=== PATIENT | female | born 1965 | race Caucasian/White ===

== ENCOUNTER → 2016-07-30 | Outpatient (CLI) | payer BC ==
[2016-07-30 15:43] LABS: Basophils # (A) 0.1 k/uL (0-0.2); Basophils % (A) 3 %; CH 32.9; CHCM 33.1; Eosinophils # (A) 0.1 k/uL (0-0.7); Eosinophils % (A) 2 %; HCT 36.7 % (34.0-46.0); HDW 2.21; HGB 11.8 gm/dL (11.4-16.0); Luc # (Auto) 0.07; Luc % (Auto) 2; Lymphocytes # (A) 0.4 k/uL (1.0-4.8); Lymphocytes % (A) 14 %; MCH 32.1 pg (25.0-35.0); MCHC 32.1 g/dL (31.0-37.0); MCV 99.8 fL (80.0-100.0); Mean Platelet Volume 7.9; Monocytes # (A) 0.2 k/uL (0-1.0); Monocytes % (A) 7 %; Neutrophils # (A) 2.3 k/uL (1.3-7.7); Neutrophils % (A) 72 %; RBC 3.67 m/uL (3.80-5.40); RDW 12.5 % (11.5-15.5); WBC 3.2 k/uL (3.8-10.6); WBC (Perox) 3.34
== END | disposition home or self-care (01) ==
LOC: LABWHC1 15:24
PROVIDERS: ATTEND Internal Medicine Rheumatology
DX: D72.819 Decreased white blood cell count, unspecified (principal)
CPT/HCPCS: 36415; 85025

== ENCOUNTER → 2016-08-27 | Outpatient (CLI) | payer BC ==
--- NOTE | 2016-08-27 17:51 | PN ---
This patient is coming in for her yearly check regarding her obstructive sleep apnea. The patient was diagnosed having mild DEIDRA with an AHI of 12 and currently she is on a CPAP pressure of 8 cm of water. She is utilizing an older-generation REMstar CPAP unit. Her machine has become recently more defective and she is looking for newer mask. Note that since her last evaluation the patient was diagnosed having a papillary cancer of the thyroid, and she has undergone thyroidectomy followed by radiation iodine treatment. Note that around the time of the surgery the patient gained around 10 pounds. She is currently on thyroid hormone replacement. She is taking Levoxyl 125 mcg p.o. daily. She is also known to have vaginal cancer that was treated by systemic chemotherapy and she has been in remission. She is taking Effexor for anxiety/depression at a dose of 225 mg p.o. daily. She is also on Xanax on a p.r.n. basis. She is sleeping well and her sleep quality is good for now. She was having some nightmares that were induced by Chantix. She took Chantix for a total of 2 weeks and the patient was having vivid dreams and unusual dreams. The patient quit taking the Chantix and ultimately she quit smoking. Since then her weird dreams have essentially recovered. BP is 136/78, pulse 84, respiration 16, temperature 98.2, saturation 99% on room air. Weight is 131. Height is 62 inches. [place] score is 6. BMI is 23.9. GENERAL APPEARANCE: Calm, comfortable. HEENT: Negative for JVD. No goiter or neck mass. LUNGS: Clear to auscultation. HEART: Sounds are regular rate and rhythm. Normal S1, S2. ABDOMEN: Soft, nontender. No organomegaly. EXTREMITIES: No edema. No cyanosis or clubbing. IMPRESSION: 1. Obstructive sleep apnea, mild, with an AHI of 12, currently on CPAP pressure of 8 cm of water. The patient is seeking a new CPAP machine. 2. Papillary carcinoma of the thyroid, status post thyroidectomy and radioactive iodine treatment. 3. 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 4. Depression. 5. Psoriasis. 6. Psoriatic arthritis. 7. Chronic anxiety. 8. Hyperlipidemia. PLAN: 1. Will order the patient a new CPAP machine. This will be a ResMed AirSense set at a pressure of 8 cm of water with a nasal pillow, and this will be an AirFit P10. 2. Encourage weight loss. 3. Treatment is successful in terms of her CPAP therapy, and the patient is compliant. We will see her back in a year's time in followup. The CPAP order for the new machine will be sent to [facility].
== END | disposition home or self-care (01) ==
LOC: SLEEP 13:25
PROVIDERS: ATTEND Internal Medicine Critical Care Medicine
DX: G47.33 Obstructive sleep apnea (adult) (pediatric) (principal); C73 Malignant neoplasm of thyroid gland; C52 Malignant neoplasm of vagina; Z98.890 Other specified postprocedural states; F32.9 Major depressive disorder, single episode, unspecified; L40.9 Psoriasis, unspecified; L40.50 Arthropathic psoriasis, unspecified; F41.8 Other specified anxiety disorders; E78.5 Hyperlipidemia, unspecified; Z92.21 Personal history of antineoplastic chemotherapy; Z87.891 Personal history of nicotine dependence; Z79.899 Other long term (current) drug therapy

== ENCOUNTER 2016-10-27 11:15 | Emergency (ER) | payer BC ==
[2016-10-27 11:40] VITALS: RESP 16
[2016-10-27] MEDS ORDERED: SODIUM CHLORIDE 0.9% 1,000 ML IV ONE (11:44)
[2016-10-27] MEDS ORDERED: SODIUM CHLORIDE 0.9% 1,000 ML IV SCH (11:45)
--- NOTE | 2016-10-27 12:04 | ED ---
General Adult HPI - General Chief complaint: Overdose Stated complaint: OVERDOSE Time Seen by Provider: 10/27/16 11:43 Source: patient, family, RN notes reviewed Mode of arrival: ambulatory Limitations: no limitations - History of Present Illness Initial comments: Chief complaint history of present illness this is a 51-year-old female who is here because she accidentally took too much methotrexate. The patient read the bottle incorrectly and took over a period of one week what she should've taken over. At 7 weeks. She called poison control she was told to come here. Poison control was notified and they recommend the patient receive IV fluids 20- 30 ML's per kilo. Basic labs to be done. Including stat methotrexate determination. - Related Data Home Medications Medication Instructions Recorded Confirmed Cyanocobalamin [Vitamin B-12] 1,000 mcg PO DAILY 03/30/14 10/27/16 Simvastatin [Zocor] 20 mg PO HS 03/30/14 10/27/16 Venlafaxine HCl [Effexor] 150 mg PO DAILY 03/30/14 10/27/16 [facility] Ultra [place] 50 Plus 1 tab PO DAILY 09/08/14 10/27/16 Loratadine [Claritin] 10 mg PO DAILY 09/08/14 10/27/16 Vitamin A 8,000 unit PO DAILY 09/08/14 10/27/16 Zinc 50 mg PO DAILY 09/08/14 10/27/16 Magnesium Gluconate [Magonate] 500 mg PO DAILY 05/31/15 10/27/16 ARIPiprazole [Abilify] 5 mg PO HS 10/27/16 10/27/16 Calcium Carbonate [Calcium] 600 mg PO 10/27/16 10/27/16 Folic Acid 1 mg PO DAILY 10/27/16 10/27/16 L.acidoph,Paracerici, B.lactis 1 cap PO DAILY 10/27/16 10/27/16 [Probiotic] LORazepam [Ativan] 0.25 - 0.5 mg PO BID PRN 10/27/16 10/27/16 Levothyroxine Sodium [Synthroid] 125 mcg PO DAILY 10/27/16 10/27/16 Methotrexate Sodium [Methotrexate] 10 - 15 mg PO TU 10/27/16 10/27/16 Multivitamins, Thera [Multivitamin 1 tab PO DAILY 10/27/16 10/27/16 (formulary)] Naproxen Sodium [Aleve] 220 mg PO HS 10/27/16 10/27/16 Ondansetron Odt [Zofran Odt] 4 mg PO Q8H PRN 10/27/16 10/27/16 Allergies Allergy/AdvReac Type Severity Reaction Status Date / Time oxycodone HCl [From Percodan] Allergy Itching Verified 10/27/16 13:00 oxycodone terephthalate Allergy Itching Verified 10/27/16 13:00 [From Percodan] Review of Systems ROS Statement: Those systems with pertinent positive or pertinent negative responses have been documented in the HPI. Review of systems. No headache or visual acuity changes. The patient has had multiple medical problems including papillary thyroid carcinoma with resection and radiation. There've been recurrent lymphadenopathy is currently being evaluated. 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 The patient's taking her methotrexate because of psoriatic arthritis. All systems are reviewed. Surgeries include 1 , ligament repair to left hand, carpal tunnel the right hand. Patient's also had uterine ablation. Family history no cancers. The patient has ALLERGIES to OxyContin. Patient's nonsmoker nondrinker. ROS Other: All systems not noted in ROS Statement are negative. Past Medical History Past Medical History: Cancer, Eye Disorder, Fibromyalgia, Hyperlipidemia, Neurologic Disorder, Skin Disorder, Thyroid Disorder Additional Past Medical History / Comment(s): Psoriatic Arthritis-ON BACK,ARMS & LEGS, HX VERTIGO OFF & ON, RECENTLY DX CA-SQUAMOUS CELL OF VAGINA-STARTS RADIATION 06/05/15 MON-FRI FOR 25 TX AND STARTS CHEMO 06/06/15 EVERY X 5 TX' S, GLASSES TO READ ONLY, thyroid History of Any Multi-Drug Resistant Organisms: None Reported Past Surgical History: Section, Orthopedic Surgery, Uterine Ablation Additional Past Surgical History / Comment(s): LT [id number]; LT KNEE SCOPE 2002 ; LT BREAST BX- STEREOTACTIC CORE BX 2013; RT CTR 2013;; UTERINE ABLATION 2010 ; 04/25/15 EXCISION OF CALCIFIED LT SUBCUTANEOUS PERINEAL TISSUE; COLONOSCOPY 2011 WITH 2 POLYPS REMOVED; NASAL SURGERY 2012, thyroidectomy Past Anesthesia/Blood Transfusion Reactions: No Reported Reaction Past Psychological History: Anxiety, Depression Additional Psychological History / Comment(s): OCC ANXIETY Smoking Status: Current every day smoker Past Alcohol Use History: Rare Additional Past Alcohol Use History / Comment(s): SMOKER SINCE AGE 14(1968)- HAS QUIT OFF & ON,SMOKES 1PPD Past Drug Use History: None Reported - Past Family History Mother Family Medical History: Eye Disorder, Hyperlipidemia, Hypertension Additional Family Medical History / Comment(s): HEART DISEASE AND MACULAR DEGENERATION Sister(s) Family Medical History: Hyperlipidemia Additional Family Medical History / Comment(s): TWO SISTERS HAVE HYPERLIPIDEMIA Brother(s) Family Medical History: Hyperlipidemia, Hypertension Additional Family Medical History / Comment(s): BOTH BROTHERS HAVE HTN, HYPERLIPIDEMIAS, HEART DISEASE General Exam - General Exam Comments Initial Comments: General: The patient is awake and alert, in no distress, and does not appear acutely ill. Patient here because of accidental overdose of methadone treks 8, missed interpreted the prescription orders. Vital signs shows temperature 98.4 pulse 92 respiratory rate 16 pulse ox 100% room air blood pressure 135/76 Eye: Pupils are equal, round and reactive to light, extra-ocular movements are intact ; there is normal conjunctiva bilaterally. No signs of icterus. Ears, nose, mouth and throat: There are moist mucous membranes and no oral lesions. She has had a thyroidectomy for papillary carcinoma as well as radiation. Neck: The neck is supple, there is no tenderness , recent ultrasound showed possibility of increased lymphadenopathy. Cardiovascular: Heart sounds. Normal. No murmur appreciated. The patient reports in general she just feels funny in her chest without specific complaint. Respiratory: Lungs are clear to auscultation, respirations are non-labored, breath sounds are equal. No wheezes, stridor, rales, or rhonchi. Gastrointestinal: Soft, non-distended, non-tender abdomen without masses or organomegaly noted. There is no rebound or guarding present. No CVA tenderness. Bowel sounds are unremarkable. Back: No complaint of back pain. Musculoskeletal: Patient states on her examination yesterday she felt a small possible lymph node in the lower left inguinal region. This was evaluated by her cancer team. Neurological: No neuro deficits noted or complained of. Skin: Patient has psoriasis upper or lower extremities. Limitations: no limitations Course Vital Signs 10/27/16 10/27/16 10/27/16 11:31 14:40 17:38 Temperature 98.4 F 98.2 F Pulse Rate 92 79 77 Respiratory 16 16 16 Rate Blood Pressure 135/76 139/68 137/77 O2 Sat by Pulse 100 100 100 Oximetry Medical Decision Making - Medical Decision Making Poison control called and told me that they called [place] [facility] to get the results of the methotrexate level. It 0.02 mmol. Poison control this time says the patient can go home. Not obviously to take anymore methotrexate. And get a repeat CBC, in one week. - Lab Data Result diagrams: 10/27/16 11:56 10/27/16 11:56 Lab Results 10/27/16 10/27/16 Range/Units 11:56 11:56 WBC 3.2 L (3.8-10.6) k/uL RBC 3.89 (3.80-5.40) m/uL Hgb 12.2 (11.4-16.0) gm/dL Hct 36.2 (34.0-46.0) % MCV 93.1 (80.0-100.0) fL MCH 31.3 (25.0-35.0) pg MCHC 33.6 (31.0-37.0) g/dL RDW 12.8 (11.5-15.5) % Plt Count 237 (150-450) k/uL Neutrophils % 79 % Lymphocytes % 13 % Monocytes % 2 % Eosinophils % 2 % Basophils % 1 % Neutrophils # 2.5 (1.3-7.7) k/uL Lymphocytes # 0.4 L (1.0-4.8) k/uL Monocytes # 0.1 (0-1.0) k/uL Eosinophils # 0.1 (0-0.7) k/uL Basophils # 0.0 (0-0.2) k/uL Sodium 141 (137-145) mmol/L Potassium 4.2 (3.5-5.1) mmol/L Chloride 101 (98-107) mmol/L Carbon Dioxide 28 (22-30) mmol/L Anion Gap 12 mmol/L BUN 13 (7-17) mg/dL Creatinine 0.56 (0.52-1.04) mg/dL Est GFR (MDRD) Af Amer >60 (>60 ml/min/1.73 sqM) Est GFR (MDRD) Non-Af >60 (>60 ml/min/1.73 sqM) Glucose 89 (74-99) mg/dL Calcium 9.5 (8.4-10.2) mg/dL Total Bilirubin 0.5 (0.2-1.3) mg/dL AST 61 H (14-36) U/L ALT 87 H (9-52) U/L Alkaline Phosphatase 77 (38-126) U/L Total Protein 6.9 (6.3-8.2) g/dL Albumin 4.3 (3.5-5.0) g/dL Disposition Clinical Impression: Accidental methotrexate overdose Disposition: HOME SELF-CARE Condition: Stable Instructions: Methotrexate (By mouth) Additional Instructions: Follow-up with family physician and 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 Have a CBC and comp done in one week. Return as needed Time of Disposition: 17:57
[2016-10-27 12:07] LABS: Basophils % (A) 1 %; CH 31.3; CHCM 33.7; Eosinophils # (A) 0.1 k/uL (0-0.7); Eosinophils % (A) 2 %; HCT 36.2 % (34.0-46.0); HDW 2.29; HGB 12.2 gm/dL (11.4-16.0); Luc # (Auto) 0.09; Luc % (Auto) 3; Lymphocytes # (A) 0.4 k/uL (1.0-4.8); Lymphocytes % (A) 13 %; MCH 31.3 pg (25.0-35.0); MCHC 33.6 g/dL (31.0-37.0); MCV 93.1 fL (80.0-100.0); Mean Platelet Volume 6.8; Monocytes # (A) 0.1 k/uL (0-1.0); Monocytes % (A) 2 %; Neutrophils # (A) 2.5 k/uL (1.3-7.7); Neutrophils % (A) 79 %; RBC 3.89 m/uL (3.80-5.40); RDW 12.8 % (11.5-15.5); WBC 3.2 k/uL (3.8-10.6); WBC (Perox) 3.15
[2016-10-27 12:24] LABS: ALT 87 U/L (9-52); AST 61 U/L (14-36); Alkaline Phosphatase 77 U/L (38-126); Anion Gap 12 mmol/L; Blood Urea Nitrogen 13 mg/dL (7-17); Calcium 9.5 mg/dL (8.4-10.2); Carbon Dioxide 28 mmol/L (22-30); Chloride 101 mmol/L (98-107); Glucose 89 mg/dL (74-99); Non-African American GFR(MDRD) >60 (>60 ml/min/1.73 sqM); Potassium 4.2 mmol/L (3.5-5.1); Sodium 141 mmol/L (137-145); Total Bilirubin 0.5 mg/dL (0.2-1.3); Total Protein 6.9 g/dL (6.3-8.2)
[2016-10-27 17:39] VITALS: BP 137/77; PULSE 77
[2016-10-27 18:23] VITALS: TEMP 97.5
[2016-10-28 07:28] LABS: Mis test requested (Blood) Methotrexate
== END 2016-10-27 18:23 | disposition home or self-care (01) ==
LOC: EC 11:15
DX: T45.1X1A Poisoning by antineoplastic and immunosuppressive drugs, accidental (unintentional), initial encounter (principal); Z88.5 Allergy status to narcotic agent; E07.9 Disorder of thyroid, unspecified; E78.5 Hyperlipidemia, unspecified; F41.9 Anxiety disorder, unspecified; F32.9 Major depressive disorder, single episode, unspecified; F17.200 Nicotine dependence, unspecified, uncomplicated; Z85.9 Personal history of malignant neoplasm, unspecified; Z79.1 Long term (current) use of non-steroidal anti-inflammatories (NSAID); Z79.899 Other long term (current) drug therapy
CPT/HCPCS: 36415; 80053; 80299; 85025; 96360; 96361; 99284

== ENCOUNTER → 2016-11-01 | Outpatient (CLI) | payer BC ==
[2016-11-01 17:16] LABS: CHCM 33.1; HCT 34.6 % (34.0-46.0); HDW 2.35; HGB 11.8 gm/dL (11.4-16.0); MCHC 34.1 g/dL (31.0-37.0); MCV 93.9 fL (80.0-100.0); Mean Platelet Volume 6.7; RBC 3.69 m/uL (3.80-5.40); RDW 13.6 % (11.5-15.5); WBC 3.3 k/uL (3.8-10.6)
[2016-11-01 17:40] LABS: ALT 55 U/L (9-52); AST 36 U/L (14-36); Alkaline Phosphatase 84 U/L (38-126); Anion Gap 10 mmol/L; Blood Urea Nitrogen 8 mg/dL (7-17); Calcium 9.7 mg/dL (8.4-10.2); Carbon Dioxide 30 mmol/L (22-30); Chloride 102 mmol/L (98-107); Glucose 102 mg/dL (74-99); Non-African American GFR(MDRD) >60 (>60 ml/min/1.73 sqM); Potassium 4.3 mmol/L (3.5-5.1); Sodium 142 mmol/L (137-145); Total Bilirubin 0.4 mg/dL (0.2-1.3); Total Protein 6.8 g/dL (6.3-8.2)
== END | disposition home or self-care (01) ==
LOC: LABWHC1 16:54
PROVIDERS: ATTEND Emergency Medicine
DX: T45.1X1A Poisoning by antineoplastic and immunosuppressive drugs, accidental (unintentional), initial encounter (principal)
CPT/HCPCS: 36415; 80053; 85027

== ENCOUNTER → 2016-11-13 | Outpatient (CLI) | payer BC ==
--- NOTE | 2016-11-13 14:48 | MM ---
Reason for exam: clinical finding. Last mammogram was performed 8 months ago. History: Patient has history of other cancer at age 50 and has history of high-risk lesion on a previous biopsy at age 48. Family history of breast cancer in 2 maternal aunts and breast cancer in paternal aunt. High risk left mammotome panel of the left breast, November 11, 2013. Indicated problem(s): lump or thickening in the left breast. Physical Findings: Nurse did not find any significant physical abnormalities on exam. MG Diagnostic Mammo LT w CAD CC and MLO view(s) were taken of the left breast. Prior study comparison: March 15, 2016, bilateral MG screening mammo w CAD. November 08, 2014, bilateral MG diagnostic mammo w CAD BEATRICE. The breast tissue is heterogeneously dense. This may lower the sensitivity of mammography. Benign calcifications. There is no discrete abnormality including area of concern. These results were verbally communicated with the patient and result sheet given to the patient on 11/13/16. ASSESSMENT: Incomplete: need additional imaging evaluation, BI-RAD 0 RECOMMENDATION: Ultrasound of the left breast.
--- NOTE | 2016-11-13 14:49 | USB ---
Reason for exam: additional evaluation requested from abnormal screening. History: Patient has history of other cancer at age 50 and has history of high-risk lesion on a previous biopsy at age 48. Family history of breast cancer in 2 maternal aunts and breast cancer in paternal aunt. High risk left mammotome panel of the left breast, November 11, 2013. US Breast Limited LT Left breast ultrasound demonstrates no cystic or solid lesion seen. These results were verbally communicated with the patient and result sheet given to the patient on 11/13/16. ASSESSMENT: Negative, BI-RAD 1 RECOMMENDATION: Return to routine screening mammogram schedule for the left breast. Back on schedule February 2017. Manage patient on a clinical basis.
== END ==
LOC: RADMAMWWP 13:04
PROVIDERS: ATTEND Obstetrics & Gynecology
DX: N63 Unspecified lump in breast (principal); R92.8 Other abnormal and inconclusive findings on diagnostic imaging of breast
CPT/HCPCS: 76642; G0206

== ENCOUNTER → 2017-04-03 | Outpatient (CLI) | payer MEDICARE, BC ==
--- NOTE | 2017-04-04 06:54 | MM ---
Reason for exam: screening (asymptomatic). Last mammogram was performed 5 months ago. History: Patient has history of other cancer at age 50 and has history of high-risk lesion on a previous biopsy at age 48. Family history of breast cancer in 2 maternal aunts and breast cancer in paternal aunt. High risk left mammotome panel of the left breast, November 11, 2013. Physical Findings: A clinical breast exam by your physician is recommended on an annual basis and results should be correlated with mammographic findings. MG 3D Screening Mammo W/Cad Bilateral CC and MLO view(s) were taken. Prior study comparison: November 13, 2016, left breast MG diagnostic mammo LT w CAD. March 15, 2016, bilateral MG screening mammo w CAD. The breast tissue is heterogeneously dense. This may lower the sensitivity of mammography. Finding: There are typically benign round, regional calcifications in the right breast. Previous mammotome biopsy in the left breast. There is no discrete abnormality. ASSESSMENT: Benign, BI-RAD 2 RECOMMENDATION: Routine screening mammogram of both breasts in 1 year.
== END | disposition home or self-care (01) ==
LOC: RADMAMWWP 09:41
PROVIDERS: ATTEND Internal Medicine Geriatric Medicine
DX: Z12.31 Encounter for screening mammogram for malignant neoplasm of breast (principal)
CPT/HCPCS: 77063; G0202

== ENCOUNTER → 2017-08-05 | Outpatient (CLI) | payer MEDICARE, BC ==
--- NOTE | 2017-08-05 14:47 | PN ---
PROGRESS NOTE This patient is 52 with known history of obstructive sleep apnea. She is coming to see me in followup. The patient was diagnosed having mild DEIDRA many years back with an AHI of 12. She was being treated with a CPAP pressure of 8 cm of water and she was using an older generation REM Star CPAP unit. The machine was becoming progressively more defective and during her last evaluation I gave her a prescription for a new CPAP machine which was a Rezmet Unit, a newer generation CPAP. The order went through however as the patient's insurance switched to Medicare, the machine had to be returned knowing that Medicare did not pickler helper the payments on the CPAP unit. As such, the CPAP machine was returned back to the [facility]. The patient is symptomatic. She has been very somnolent and sleepy and she wanted a reevaluation and treatment. As such, she will need another CPAP titration to adjust her pressures and send out an order for a new CPAP unit regarding her symptomatic obstructive sleep apnea. No recent weight gain. She has known having vaginal cancer and currently her disease is in remission. She has had several lymph node biopsies in the pelvic area that showed no evidence of any cancer. She also has a history of papillary cancer of the thyroid and she has undergone thyroidectomy in currently she is on thyroid hormone replacement. She has chronic anxiety/depression for which she is on Xanax. She has quit smoking for now. Her current vital signs are as follows: Temperature 97.8, pulse is 80, respirations 16, BP is 127/78, and weight is 131. [place] score is at 7. General appearance is calm, comfortable in no acute distress. Head is atraumatic, normocephalic. No goiter or neck masses. Scar of previous neck surgery. LUNGS: Clear to auscultation. Heart sounds regular rate and rhythm. Normal S1, S2. No S3, S4. No murmurs. Abdomen is soft, nontender. No organomegaly. EXTREMITIES: No edema. No cyanosis or clubbing. NEUROLOGIC the patient is alert and oriented x3. There is no focal neurological deficits. Psychiatric is negative for any active active anxiety or depression. Skin is negative for any ulcerations or wounds. IMPRESSION: 1. Obstructive sleep apnea. Mild in severity. AHI of 12. The patient will need another CPAP titration to establish a new CPAP pressure and the patient will obviously need a new CPAP order. 2. carcinoma of the thyroid with thyroidectomy and radiation iodine treatment. Currently she is on thyroid hormone replacement. 3. Squamous cell carcinoma of vagina status post chemoradiation therapy. 4. Anxiety/depression. 5. Psoriasis. 6. Psoriatic arthritis. 7. Chronic anxiety. 8. Hyperlipidemia. PLAN: 1. The patient was happy with her AirFit P10 nasal pillow and this will be kept. 2. The patient will be set up for a new CPAP machine. She will have a titration. The pressure will be adjusted and following that, she will see me back in 30-90 days to assess clinical response and compliance. 3. We will continue to follow. MMODL / IJN: [id number] /
== END | disposition home or self-care (01) ==
LOC: SLEEP 13:46
PROVIDERS: ATTEND Internal Medicine Critical Care Medicine
DX: G47.33 Obstructive sleep apnea (adult) (pediatric) (principal); C52 Malignant neoplasm of vagina; L40.9 Psoriasis, unspecified; E78.5 Hyperlipidemia, unspecified; F41.9 Anxiety disorder, unspecified; F32.9 Major depressive disorder, single episode, unspecified; L40.50 Arthropathic psoriasis, unspecified; Z99.89 Dependence on other enabling machines and devices; Z85.850 Personal history of malignant neoplasm of thyroid; Z90.89 Acquired absence of other organs; Z79.890 Hormone replacement therapy; Z87.891 Personal history of nicotine dependence; Z79.899 Other long term (current) drug therapy; Z92.21 Personal history of antineoplastic chemotherapy

== ENCOUNTER → 2017-10-21 | Outpatient (CLI) | payer MEDICARE, BC ==
--- NOTE | 2017-10-21 16:19 | PN ---
PROGRESS NOTE This is a 52-year-old female patient, who is coming in for a compliancy check regarding her obstructive sleep apnea treatment. The patient sent to me with increased tiredness and fatigue and sleepiness. She is known to have multiple other medical problems including history of thyroid cancer, post thyroidectomy and radioactive iodine treatment. The patient is currently on thyroid hormone replacement. She has also history of squamous cell carcinoma of the vagina, anxiety and depression, psoriasis and psoriatic arthritis and chronic anxiety and hyperlipidemia. Along with these comorbid conditions the patient was diagnosed having obstructive sleep apnea with an AHI of 12. She was offered CPAP therapy and she is utilizing her CPAP at a pressure of 8 cm of water. Based on the data was collected between 08/26/2017 and 09/24/2017 the patient extremely compliant and she has been averaging around 11 hours of CPAP use every night. Her leak factor is 1 L/minute with AHI while on treatment down to 6 and she does have some few central events. For the most part, she is benefitting from the treatment. She wants to continue the treatment. She is feeling much more refreshed while on treatment. Never the less, she is not fully refreshed and she does have some residual hypersomnia and sleepiness during the day despite averaging more than 10 hours of CPAP use every night. Her depression is well treated. Thyroid functions have been monitored through primary care physician. Apparently she has been told that her levels are appropriate. No active anxiety. No restlessness in lower extremities. No sleep fragmentation. No weight gain. Her review of systems is positive for increased fatigue and tiredness and sleepiness although improved, there is some residual hypersomnia still along with fatigue. Is also positive for anxiety and depression which is well treated. No recent weight gain or weight loss. No fever, chills or night sweats. No rhinitis. No cough or sputum production. No nocturnal heartburn or chest pain or shortness of breath. No chronic pain or palpitations. Her psoriasis is well treated for now. No active skin rash. No dysuria, frequency or urgency. No skin wounds or ulcerations or any other issues. BP 111/76, pulse 86, respirations 16, temperature is 97.7, weight is 142.6 pounds, BMI 25.9. GENERAL APPEARANCE: Calm, comfortable. HEENT: Atraumatic normocephalic. Neck is supple. There is no JVD. No goiter or neck masses. LUNGS: Clear to auscultation. Heart sounds are regular. Normal S1, S2. No S3, S4. No murmurs. Abdomen is soft, nontender. No organomegaly. EXTREMITIES: No edema. No cyanosis or clubbing. SKIN: Negative for any wounds or ulcerations. NEURO: Alert and oriented x3. There is no focal neurological deficits. PSYCH: Appropriate mood and affect. IMPRESSION: 1. Obstructive sleep apnea with an AHI of 12. The patient is undergoing successful treatment with a CPAP pressure of 8 cm of water. The patient is benefitting from the treatment. 2. Hypersomnia, improved although the patient complained to have some residual fatigue and sleepiness, [place] score is 6. 3. Adequate compliance demonstrated on the CPAP use based on the compliance data that was collected over the past 30 days. 4. History of psoriasis and psoriatic arthritis. 5. History of anxiety/depression. 6. History of hyperlipidemia. 7. History of thyroid cancer with a previous thyroidectomy and thyroid hormone replacement. 8. History of squamous cell carcinoma of the vaginal wall, status post chemoradiation therapy. PLAN: Treatment with CPAP is successful, continue same treatment. Offered this patient Provigil on trial basis 200 mg to be taken in the morning to help with ongoing fatigue and hypersomnia that is occurring during the day. The patient has been averaging around more than 8-9 hours of CPAP use of per night. Her treatment is successful. There may be some residual hypersomnia related to her obstructive sleep apnea or from other comorbidities that may respond to Provigil. The patient will call me back with her clinical response to Provigil in a few week's time. She was given only 30 day supply. MMODL / IJN: [id number] /
== END | disposition home or self-care (01) ==
LOC: SLEEP 13:07
PROVIDERS: ATTEND Internal Medicine Critical Care Medicine
DX: G47.33 Obstructive sleep apnea (adult) (pediatric) (principal); G47.10 Hypersomnia, unspecified; Z87.2 Personal history of diseases of the skin and subcutaneous tissue; Z86.59 Personal history of other mental and behavioral disorders; Z86.39 Personal history of other endocrine, nutritional and metabolic disease; Z85.850 Personal history of malignant neoplasm of thyroid; Z98.890 Other specified postprocedural states; Z85.828 Personal history of other malignant neoplasm of skin; Z92.21 Personal history of antineoplastic chemotherapy; Z99.89 Dependence on other enabling machines and devices; Z79.899 Other long term (current) drug therapy

== ENCOUNTER → 2018-01-07 | Outpatient (CLI) | payer MEDICARE, BC ==
[2018-01-07 16:47] LABS: Albumin 4.6 g/dL (3.5-5.0); Bilirubin, Delta 0.3 mg/dL (0.0-0.2); Total Bilirubin 0.3 mg/dL (0.2-1.3); Total Protein 6.8 g/dL (6.3-8.2)
== END | disposition home or self-care (01) ==
LOC: LABWHC1 15:10
PROVIDERS: ATTEND Internal Medicine Rheumatology
DX: D89.9 Disorder involving the immune mechanism, unspecified (principal); L40.50 Arthropathic psoriasis, unspecified; Z51.81 Encounter for therapeutic drug level monitoring
CPT/HCPCS: 36415; 80076

== ENCOUNTER → 2018-03-26 | Outpatient (CLI) | payer MEDICARE, BC ==
[2018-03-26 13:09] LABS: ALT 44 U/L (9-52); AST 27 U/L (14-36); Albumin 4.3 g/dL (3.5-5.0); Alkaline Phosphatase 86 U/L (38-126); Anion Gap 10 mmol/L; Blood Urea Nitrogen 9 mg/dL (7-17); Calcium 9.5 mg/dL (8.4-10.2); Carbon Dioxide 29 mmol/L (22-30); Chloride 101 mmol/L (98-107); Glucose 100 mg/dL (74-99); Potassium 4.1 mmol/L (3.5-5.1); Sodium 140 mmol/L (137-145); Total Bilirubin 0.4 mg/dL (0.2-1.3); Total Protein 6.8 g/dL (6.3-8.2)
[2018-03-26 20:17] LABS: Hepatitis B Core IgM Non-Reactive (Non-Reactive)
== END | disposition home or self-care (01) ==
LOC: LABWHC1 12:35
PROVIDERS: ATTEND Internal Medicine Geriatric Medicine
DX: R94.5 Abnormal results of liver function studies (principal)
CPT/HCPCS: 36415; 80053; 80074

== ENCOUNTER → 2018-04-02 | Outpatient (CLI) | payer MEDICARE, BC ==
--- NOTE | 2018-04-02 14:17 | US ---
EXAMINATION TYPE: US liver DATE OF EXAM: 04/02/2018 COMPARISON: NONE CLINICAL HISTORY: R94.5 ABN RESULTS OF LIVER FUNCTIONS. EXAM MEASUREMENTS: Liver Length: 15.1 cm Gallbladder Wall: 0.2 cm CBD: 0.4 cm Right Kidney: 11.0 x 4.0 x 5.3 cm Pancreas: wnl Liver: wnl Gallbladder: wnl Evidence for sonographic May's sign: no CBD: wnl Right Kidney: No hydronephrosis or masses seen IMPRESSION: 1. Normal right upper quadrant ultrasound
== END | disposition home or self-care (01) ==
LOC: RADUSWWP 08:29
PROVIDERS: ATTEND Internal Medicine Geriatric Medicine
DX: R94.5 Abnormal results of liver function studies (principal)
CPT/HCPCS: 76705

== ENCOUNTER → 2018-04-09 | Outpatient (CLI) | payer MEDICARE, BC ==
--- NOTE | 2018-04-09 14:20 | MM ---
Reason for exam: screening (asymptomatic). Last mammogram was performed 1 year ago. History: Patient has history of other cancer at age 50 and has history of high-risk lesion on a previous biopsy at age 48. Family history of breast cancer in 2 maternal aunts and breast cancer in paternal aunt. High risk left mammotome panel of the left breast, November 11, 2013. Physical Findings: A clinical breast exam by your physician is recommended on an annual basis and results should be correlated with mammographic findings. MG 3D Screening Mammo W/Cad Bilateral CC and MLO view(s) were taken. Prior study comparison: April 03, 2017, bilateral MG 3d screening mammo w/cad. November 13, 2016, left breast MG diagnostic mammo LT w CAD. The breast tissue is heterogeneously dense. This may lower the sensitivity of mammography. There are benign appearing round calcifications bilaterally. Previous mammotome biopsy in the left breast. There is no discrete abnormality. ASSESSMENT: Benign, BI-RAD 2 RECOMMENDATION: Routine screening mammogram of both breasts in 1 year.
== END | disposition home or self-care (01) ==
LOC: RADMAMWWP 09:53
PROVIDERS: ATTEND Internal Medicine Geriatric Medicine
DX: Z12.31 Encounter for screening mammogram for malignant neoplasm of breast (principal)
CPT/HCPCS: 77063; 77067

== ENCOUNTER → 2018-07-24 | Outpatient (CLI) | payer MEDICARE, BC ==
[2018-07-24 13:42] LABS: Basophils % (A) 0 %; Eosinophils # (A) 0.1 k/uL (0-0.7); Eosinophils % (A) 2 %; HCT 36.8 % (34.0-46.0); HGB 12.5 gm/dL (11.4-16.0); Lymphocytes # (A) 0.4 k/uL (1.0-4.8); Lymphocytes % (A) 9 %; MCH 31.7 pg (25.0-35.0); MCV 93.1 fL (80.0-100.0); Mean Platelet Volume 6.3; Monocytes # (A) 0.2 k/uL (0-1.0); Monocytes % (A) 5 %; Neutrophils # (A) 4.4 k/uL (1.3-7.7); Neutrophils % (A) 84 %; Platelet Count 215 k/uL (150-450); RBC 3.95 m/uL (3.80-5.40); RDW 14.1 % (11.5-15.5); WBC 5.2 k/uL (3.8-10.6)
== END | disposition home or self-care (01) ==
LOC: LABWHC1 13:00
PROVIDERS: ATTEND Internal Medicine Rheumatology
DX: L40.50 Arthropathic psoriasis, unspecified (principal); D89.9 Disorder involving the immune mechanism, unspecified; Z51.81 Encounter for therapeutic drug level monitoring
CPT/HCPCS: 36415; 85025

== ENCOUNTER → 2018-08-21 | Outpatient (CLI) | payer MEDICARE ==
[2018-08-21 14:33] LABS: Basophils % (A) 1 %; Eosinophils # (A) 0.1 k/uL (0-0.7); Eosinophils % (A) 3 %; HCT 39.5 % (34.0-46.0); Lymphocytes # (A) 0.5 k/uL (1.0-4.8); Lymphocytes % (A) 14 %; MCH 31.5 pg (25.0-35.0); MCHC 32.8 g/dL (31.0-37.0); MCV 95.8 fL (80.0-100.0); Mean Platelet Volume 6.7; Monocytes # (A) 0.2 k/uL (0-1.0); Monocytes % (A) 4 %; Neutrophils # (A) 2.9 k/uL (1.3-7.7); Neutrophils % (A) 77 %; Platelet Count 210 k/uL (150-450); RBC 4.13 m/uL (3.80-5.40); RDW 14.4 % (11.5-15.5); WBC 3.8 k/uL (3.8-10.6)
[2018-08-21 18:43] LABS: ALT 41 U/L (8-44); AST 33 U/L (13-35); Albumin/Globulin Ratio 2.25 (1.20-2.10); Alkaline Phosphatase 118 U/L (41-126); Bilirubin, Conjugated <0.20 mg/dL (0.20-0.40); Total Bilirubin 0.3 mg/dL (0.3-1.2); Total Protein 6.5 g/dL (6.2-8.2)
== END ==
LOC: LABWHC1 13:46
PROVIDERS: ATTEND Internal Medicine Rheumatology
DX: Z51.81 Encounter for therapeutic drug level monitoring (principal); D89.9 Disorder involving the immune mechanism, unspecified; L40.50 Arthropathic psoriasis, unspecified
CPT/HCPCS: 36415; 80076; 82565; 85025

== ENCOUNTER → 2018-09-29 | Outpatient (CLI) | payer MEDICARE ==
--- NOTE | 2018-09-29 17:14 | PN ---
PROGRESS NOTE Marnie is doing well. She is coming for routine check regarding obstructive sleep apnea. She has done extremely well in terms of other comorbidities. 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 She has also history of anxiety and depression. She has history of psoriatic arthritis and psoriasis. Maintained on methotrexate. She has chronic anxiety and hyperlipidemia. As for sleep apnea, she has mild disease with an AHI of 12 and she has been maintained on a CPAP pressure of 8. She has been exercising regularly. Her weight is down to 134, and she is 8 pounds less compared to her last evaluation approximately a year ago. She is using AirFit P10 nose pillows. She is waking up refreshed. Based on the compliance data, she is averaging about 7.5 hours of CPAP use per night. Leak is 22 L/minute. AHI is down to less than 5. No complaints whatsoever. She has had no anxiety. No restlessness in lower extremities. No sleep fragmentation, waking up refreshed and alert. PHYSICAL EXAMINATION: BP is 118/81, pulse 97, respirations 16, temp 98.4, saturation 98% on room air. Weight is 134, height is 5 feet 2 inches, Buhl score is 7, BMI 24.5, general appearance is calm and comfortable. Head is atraumatic, normocephalic. Neck is supple. There is no JVD. No goiter or neck masses. LUNGS: Clear to auscultation. Heart sounds are regular rate and rhythm. Normal S1, S2. No S3, S4. No murmurs. Abdomen is soft, nontender. No organomegaly. EXTREMITIES: No edema. No cyanosis or clubbing. IMPRESSION: 1. Obstructive sleep apnea, AHI of 12, currently on CPAP pressure of 8 and continues to be compliant and she is having excellent clinical response. 2. Hypersomnia, recovered. 3. Psoriasis along with psoriatic arthritis on methotrexate. 4. Chronic anxiety/depression. Currently on a combination of Abilify and Effexor. 5. Hyperlipidemia on Zocor. 6. 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 7. History of thyroid cancer. Post thyroidectomy. PLAN: 1. Continue CPAP therapy at same level of pressure. 2. Daily exercise. 3. Adequate sleep hygiene measures. 4. Continue to follow, treatment is good. 5. Refills on supplies were given. 6. See me back in a few years time in follow up. MMODL / IJN: [id number] /
== END ==
LOC: SLEEP 15:21
PROVIDERS: ATTEND Internal Medicine Critical Care Medicine
DX: G47.33 Obstructive sleep apnea (adult) (pediatric) (principal); L40.50 Arthropathic psoriasis, unspecified; F32.9 Major depressive disorder, single episode, unspecified; F41.9 Anxiety disorder, unspecified; E78.5 Hyperlipidemia, unspecified; Z99.89 Dependence on other enabling machines and devices; Z85.44 Personal history of malignant neoplasm of other female genital organs; Z92.21 Personal history of antineoplastic chemotherapy; Z85.850 Personal history of malignant neoplasm of thyroid; Z79.899 Other long term (current) drug therapy; Z92.3 Personal history of irradiation; Z90.89 Acquired absence of other organs

== ENCOUNTER → 2018-10-23 | Outpatient (CLI) | payer MEDICARE ==
[2018-10-23 17:43] LABS: Basophils % (A) 1 %; Eosinophils # (A) 0.1 k/uL (0-0.7); Eosinophils % (A) 1 %; HGB 12.4 gm/dL (11.4-16.0); Lymphocytes # (A) 0.6 k/uL (1.0-4.8); Lymphocytes % (A) 15 %; MCH 31.1 pg (25.0-35.0); MCHC 32.7 g/dL (31.0-37.0); MCV 95.3 fL (80.0-100.0); Mean Platelet Volume 7.1; Monocytes # (A) 0.2 k/uL (0-1.0); Monocytes % (A) 4 %; Neutrophils # (A) 3.1 k/uL (1.3-7.7); Neutrophils % (A) 77 %; Platelet Count 228 k/uL (150-450); RBC 3.99 m/uL (3.80-5.40); RDW 15.3 % (11.5-15.5); WBC 4.1 k/uL (3.8-10.6)
[2018-10-23 23:49] LABS: ALT 47 U/L (8-44); AST 34 U/L (13-35); Albumin/Globulin Ratio 2.71 (1.60-3.17); Alkaline Phosphatase 109 U/L (41-126); Bilirubin, Conjugated <0.20 mg/dL (0.20-0.40); Globulin 1.7 g/dL (1.6-3.3); Total Bilirubin 0.3 mg/dL (0.2-1.2); Total Protein 6.3 g/dL (6.2-8.2)
== END | disposition home or self-care (01) ==
LOC: LABWHC1 16:34
PROVIDERS: ATTEND Internal Medicine Rheumatology
DX: L40.50 Arthropathic psoriasis, unspecified (principal); D89.9 Disorder involving the immune mechanism, unspecified; E89.0 Postprocedural hypothyroidism; Z51.81 Encounter for therapeutic drug level monitoring
CPT/HCPCS: 36415; 80076; 82565; 84443; 85025

== ENCOUNTER → 2018-11-04 | Outpatient (CLI) | payer MEDICARE ==
--- NOTE | 2018-11-04 15:43 | BD ---
EXAMINATION TYPE: Axial Bone Density DATE OF EXAM: 11/04/2018 COMPARISON: NONE CLINICAL HISTORY: Postoperative hypothyroidism Height: 61.5 Weight: 134.4 FRAX RISK QUESTIONS: Alcohol (3 or more units per day): no Family History (Parent hip fracture): yes- mother Glucocorticoids (More than 3mos): no (Ex: prednisone, prednisolone, methylprednisolone, dexamethasone, and hydrocortisone). History of Fracture in Adulthood: no Secondary Osteoporosis: 1. Type 1 Diabetes: no 2. Hyperthyroidism: no 3. Menopause before 45: yes 4. Malnutrition: no 5. Chronic liver disease: no Rheumatoid Arthritis: no Current Tobacco Use: no RISK FACTORS HISTORY OF: History of Wrist Fracture: right wrist When: as a child Family History of Osteoporosis: no Active: yes Diet low in dairy products/other sources of calcium: no Postmenopausal woman: age 38 Lost more than 2 inches in height since high school: no MEDICATIONS: anti-depressants, effexor, methotrexate simvastatin, Thyroid Medications: levothyroxine How Lon years Additional History: thyroid cancer-2014/ chemo and radiation/ vaginal cancer 2013 EXAM MEASUREMENTS: Bone mineral densitometry was performed using the [employer] Digital System. Bone mineral density as measured about the Lumbar spine is: ----- L1-L4(G/cm2): 0.983 T Score Values are as follows: ----- L2: -2.3 ----- L3: -1.4 ----- L4: -1.8 ----- L1-L4: -1.6 Bone mineral density : baseline Bone mineral density about the R hip (g/cm2): 0.825 Bone mineral density about the L hip (g/cm2): 0.754 T Score values are as follows: -----R Neck: -1.5 -----L Neck: -1.2 -----R Total: -0.6 -----L Total: -1.1 Bone mineral density : baseline IMPRESSION: Osteopenia (T Score between -2.5 and -1). There is slightly increased risk of fracture and the patient may be considered for treatment. Re-Screen 2-5 years. NOTE: T-SCORE=SD OF THE YOUNG ADULT MEAN.
== END | disposition home or self-care (01) ==
LOC: RADBDWWP 14:02
PROVIDERS: ATTEND Internal Medicine Rheumatology
DX: M85.80 Other specified disorders of bone density and structure, unspecified site (principal)
CPT/HCPCS: 77080

== ENCOUNTER → 2018-12-18 | Outpatient (CLI) | payer MEDICARE ==
[2018-12-18 15:19] LABS: Basophils % (A) 1 %; Eosinophils # (A) 0.1 k/uL (0-0.7); Eosinophils % (A) 1 %; HCT 38.2 % (34.0-46.0); HGB 12.7 gm/dL (11.4-16.0); Lymphocytes # (A) 0.6 k/uL (1.0-4.8); Lymphocytes % (A) 13 %; MCH 31.5 pg (25.0-35.0); MCHC 33.4 g/dL (31.0-37.0); MCV 94.4 fL (80.0-100.0); Mean Platelet Volume 6.8; Monocytes # (A) 0.2 k/uL (0-1.0); Monocytes % (A) 4 %; Neutrophils # (A) 3.7 k/uL (1.3-7.7); Neutrophils % (A) 79 %; Platelet Count 226 k/uL (150-450); RBC 4.04 m/uL (3.80-5.40); RDW 15.7 % (11.5-15.5); WBC 4.7 k/uL (3.8-10.6)
[2018-12-18 18:26] LABS: ALT 75 U/L (8-44); AST 39 U/L (13-35); Albumin/Globulin Ratio 2.61 (1.60-3.17); Alkaline Phosphatase 123 U/L (41-126); Bilirubin, Conjugated <0.20 mg/dL (0.20-0.40); Globulin 1.8 g/dL (1.6-3.3); Total Bilirubin 0.4 mg/dL (0.3-1.2); Total Protein 6.5 g/dL (6.2-8.2)
== END | disposition home or self-care (01) ==
LOC: LABWHC1 14:18
PROVIDERS: ATTEND Internal Medicine Rheumatology
DX: E89.0 Postprocedural hypothyroidism (principal); D89.9 Disorder involving the immune mechanism, unspecified; L40.50 Arthropathic psoriasis, unspecified; Z51.81 Encounter for therapeutic drug level monitoring
CPT/HCPCS: 36415; 80076; 82565; 84443; 85025

== ENCOUNTER → 2019-02-16 | Outpatient (CLI) | payer MEDICARE ==
[2019-02-16 19:01] LABS: ALT 41 U/L (8-44); AST 33 U/L (13-35); Albumin/Globulin Ratio 2.71 (1.60-3.17); Alkaline Phosphatase 116 U/L (41-126); Bilirubin, Conjugated <0.20 mg/dL (0.20-0.40); Globulin 1.7 g/dL (1.6-3.3); Total Bilirubin 0.4 mg/dL (0.2-1.2); Total Protein 6.3 g/dL (6.2-8.2)
== END | disposition home or self-care (01) ==
LOC: LABWHC1 13:31
PROVIDERS: ATTEND Internal Medicine Rheumatology
DX: Z51.81 Encounter for therapeutic drug level monitoring (principal); Z79.899 Other long term (current) drug therapy; L40.50 Arthropathic psoriasis, unspecified; D89.9 Disorder involving the immune mechanism, unspecified
CPT/HCPCS: 36415; 80076

== ENCOUNTER → 2019-04-22 | Outpatient (CLI) | payer MEDICARE ==
--- NOTE | 2019-04-26 10:18 | MM ---
Reason for exam: screening (asymptomatic). Last mammogram was performed 1 year ago. History: Patient is postmenopausal, has history of other cancer at age 50, and has history of high-risk lesion on a previous biopsy at age 48. Family history of breast cancer in maternal aunt, breast cancer in paternal aunt, and breast cancer in maternal aunt at age 68. High risk left mammotome panel of the left breast, November 11, 2013. Took hormonal contraceptives for 20 years. Physical Findings: A clinical breast exam by your physician is recommended on an annual basis and results should be correlated with mammographic findings. MG 3D Screening Mammo W/Cad Bilateral CC and MLO view(s) were taken. Prior study comparison: April 09, 2018, bilateral MG 3d screening mammo w/cad. April 03, 2017, bilateral MG 3d screening mammo w/cad. The breast tissue is heterogeneously dense. This may lower the sensitivity of mammography. Previous mammotome biopsy in the left breast. No significant changes when compared with prior studies. ASSESSMENT: Benign, BI-RAD 2 RECOMMENDATION: Routine screening mammogram of both breasts in 1 year.
== END | disposition home or self-care (01) ==
LOC: RADMAMWWP 14:26
PROVIDERS: ATTEND Internal Medicine Geriatric Medicine
DX: Z12.31 Encounter for screening mammogram for malignant neoplasm of breast (principal)
CPT/HCPCS: 77063; 77067

== ENCOUNTER → 2019-04-29 | Outpatient (CLI) | payer MEDICARE ==
[2019-04-29 19:50] LABS: ALT 37 U/L (8-44); AST 31 U/L (13-35); Albumin/Globulin Ratio 2.37 (1.60-3.17); Alkaline Phosphatase 128 U/L (41-126); Bilirubin, Conjugated <0.20 mg/dL (0.20-0.40); Globulin 1.9 g/dL (1.6-3.3); Total Bilirubin 0.4 mg/dL (0.3-1.2); Total Protein 6.4 g/dL (6.2-8.2)
== END | disposition home or self-care (01) ==
LOC: LABWHC1 10:41
PROVIDERS: ATTEND Internal Medicine Rheumatology
DX: L40.50 Arthropathic psoriasis, unspecified (principal); D89.9 Disorder involving the immune mechanism, unspecified; Z51.81 Encounter for therapeutic drug level monitoring
CPT/HCPCS: 36415; 80076

== ENCOUNTER → 2020-02-01 | Outpatient (CLI) | payer MEDICARE ==
--- NOTE | 2020-02-02 09:09 | CT ---
EXAMINATION TYPE: CT elbow LT wo con DATE OF EXAM: 02/01/2020 COMPARISON: None HISTORY: Left elbow fracture. CT DLP: 132.1 mGycm Automated exposure control for dose reduction was used. CT sections are obtained through the elbow at 2 mm thick sections. Reconstructed images in orthogonal planes were obtained. Three-D reconstructed images performed separately by the technologist are revi ewed on the computer. FINDINGS: There is a comminuted fracture of the proximal ulna. This has intra-articular extension. There is a f racture at the head and neck of the radius. Radial head fracture has intra-articular extension. There is prominent soft tissue edema adjacent to the fracture sites. IMPRESSION: COMMINUTED FRACTURE PROXIMAL ULNA WITH INTRA-ARTICULAR EXTENSION. RADIAL HEAD FRACTURE IS PRESENT WIT H INTRA-ARTICULAR EXTENSION.
== END | disposition home or self-care (01) ==
LOC: RADCTMAIN 16:27
PROVIDERS: ATTEND Orthopaedic Surgery Sports Medicine
DX: S52.032A Displaced fracture of olecranon process with intraarticular extension of left ulna, initial encounter for closed fracture (principal); S52.122A Displaced fracture of head of left radius, initial encounter for closed fracture

== ENCOUNTER → 2020-02-07 | Outpatient (CLI) | payer MEDICARE ==
--- NOTE | 2020-02-07 13:48 | XR ---
EXAMINATION TYPE: XR chest 2V DATE OF EXAM: 02/07/2020 COMPARISON: NONE HISTORY: Shortness of breath TECHNIQUE: Frontal and lateral views of the chest are obtained. FINDINGS: Scattered senescent parenchymal changes noted. Hyperinflation compatible with COPD. No evidence for infiltrate. No evidence for atelectasis. Heart size is stable. Mediastinal structures are stable and grossly unremarkable. No evidence for hilar prominence. Degenerative changes dorsal spine. IMPRESSION: 1. No evidence for acute pulmonary disease.
[2020-02-07 14:44] LABS: Basophils % (A) 1 %; Eosinophils # (A) 0.1 k/uL (0-0.7); Eosinophils % (A) 2 %; HCT 38.4 % (34.0-46.0); HGB 12.8 gm/dL (11.4-16.0); Lymphocytes # (A) 0.6 k/uL (1.0-4.8); Lymphocytes % (A) 12 %; MCH 31.9 pg (25.0-35.0); MCHC 33.3 g/dL (31.0-37.0); MCV 95.9 fL (80.0-100.0); Mean Platelet Volume 6.8; Monocytes # (A) 0.2 k/uL (0-1.0); Monocytes % (A) 5 %; Neutrophils % (A) 80 %; Platelet Count 265 k/uL (150-450); RBC 4.01 m/uL (3.80-5.40); RDW 14.2 % (11.5-15.5); WBC 4.9 k/uL (3.8-10.6)
[2020-02-07 15:01] LABS: ALT 50 U/L (4-34); AST 41 U/L (14-36); African American GFR (CKD) >90 (>60 ml/min/1.73 sqM); Albumin 4.6 g/dL (3.5-5.0); Alkaline Phosphatase 107 U/L (38-126); Bilirubin, Delta 0.1 mg/dL (0.0-0.2); Bilirubin,Unconjugated 0.4 mg/dL (0.0-1.1); Non-African American GFR(CKD) >90 (>60 ml/min/1.73 sqM); Total Bilirubin 0.5 mg/dL (0.2-1.3); Total Protein 6.9 g/dL (6.3-8.2)
== END | disposition home or self-care (01) ==
LOC: RADXRMAIN 12:14
PROVIDERS: ATTEND Internal Medicine Geriatric Medicine
DX: R06.02 Shortness of breath (principal)
CPT/HCPCS: 71046; 80076; 82565; 85025

== ENCOUNTER → 2020-07-03 | Outpatient (CLI) | payer MEDICARE ==
--- NOTE | 2020-07-04 14:31 | MM ---
Reason for exam: screening (asymptomatic). Last mammogram was performed 1 year and 2 months ago. History: Patient is postmenopausal, has history of other cancer at age 50, and has history of high-risk lesion on a previous biopsy at age 48. Family history of breast cancer in maternal aunt, breast cancer in paternal aunt, and breast cancer in maternal aunt at age 68. High risk left mammotome panel of the left breast, November 11, 2013. Took hormonal contraceptives for 20 years. Physical Findings: A clinical breast exam by your physician is recommended on an annual basis and results should be correlated with mammographic findings. MG 3D Screening Mammo W/Cad Bilateral CC and MLO view(s) were taken. Prior study comparison: April 22, 2019, bilateral MG 3d screening mammo w/cad. April 09, 2018, bilateral MG 3d screening mammo w/cad. The breast tissue is heterogeneously dense. This may lower the sensitivity of mammography. Focal asymmetry, increased distrotion left upper outer quadrant 8cm from nipple. ASSESSMENT: Incomplete: need additional imaging evaluation, BI-RAD 0 RECOMMENDATION: Special view mammogram of the left breast. If lesion persists on supplemental views, image directed ultrasound is recommended. [facility] will attempt to contact patient to return for supplemental views and ultrasound if indicated.
== END | disposition home or self-care (01) ==
LOC: RADMAMWWP 12:55
PROVIDERS: ATTEND Internal Medicine Geriatric Medicine
DX: Z12.31 Encounter for screening mammogram for malignant neoplasm of breast (principal)
CPT/HCPCS: 77063; 77067

== ENCOUNTER → 2020-07-07 | Outpatient (CLI) | payer MEDICARE ==
--- NOTE | 2020-07-07 10:31 | MM ---
Reason for exam: additional evaluation requested from abnormal screening. Last mammogram was performed less than 1 month ago. History: Patient is postmenopausal, has history of other cancer at age 50, and has history of high-risk lesion on a previous biopsy at age 48. Family history of breast cancer in maternal aunt, breast cancer in paternal aunt, and breast cancer in maternal aunt at age 68. High risk left mammotome panel of the left breast, November 11, 2013. Took hormonal contraceptives for 20 years. Physical Findings: Nurse did not find any significant physical abnormalities on exam. MG 3D Work Up W/Cad LT Spot compression CC and LM view(s) were taken of the left breast. Prior study comparison: July 03, 2020, bilateral MG 3d screening mammo w/cad. April 22, 2019, bilateral MG 3d screening mammo w/cad. The breast tissue is heterogeneously dense. This may lower the sensitivity of mammography. There is no discrete abnormality including area of concern left upper quadrant. No significant new findings when compared with previous films. These results were verbally communicated with the patient and result sheet given to the patient on 07/07/20. ASSESSMENT: Benign, BI-RAD 2 RECOMMENDATION: Return to routine screening mammogram schedule for both breasts.
== END | disposition home or self-care (01) ==
LOC: RADMAMWWP 08:55
PROVIDERS: ATTEND Internal Medicine Geriatric Medicine
DX: Z12.31 Encounter for screening mammogram for malignant neoplasm of breast (principal); R92.8 Other abnormal and inconclusive findings on diagnostic imaging of breast
CPT/HCPCS: 77065; G0279; 77061

== ENCOUNTER → 2020-07-26 | Outpatient (CLI) | payer MEDICARE ==
[2020-07-26 13:04] LABS: Basophils % (A) 1 %; Eosinophils # (A) 0.1 k/uL (0-0.7); Eosinophils % (A) 1 %; HCT 42.7 % (34.0-46.0); HGB 14.6 gm/dL (11.4-16.0); Lymphocytes # (A) 0.8 k/uL (1.0-4.8); Lymphocytes % (A) 13 %; MCH 31.6 pg (25.0-35.0); MCHC 34.1 g/dL (31.0-37.0); MCV 92.6 fL (80.0-100.0); Mean Platelet Volume 6.9; Monocytes # (A) 0.3 k/uL (0-1.0); Monocytes % (A) 5 %; Neutrophils # (A) 4.5 k/uL (1.3-7.7); Neutrophils % (A) 79 %; Platelet Count 264 k/uL (150-450); RBC 4.61 m/uL (3.80-5.40); RDW 14.6 % (11.5-15.5); WBC 5.8 k/uL (3.8-10.6)
[2020-07-27 04:23] LABS: African American GFR (CKD) 118.1 (60.0-200.0); Albumin 4.9 g/dL (3.80-4.90); Albumin/Globulin Ratio 2.72 (1.60-3.17); Bilirubin, Conjugated 0.2 mg/dL (0.20-0.40); Bilirubin,Unconjugated 0.2 mg/dL; Globulin 1.8 g/dL (1.6-3.3); Non-African American GFR(CKD) 101.9 (60.0-200.0); Total Bilirubin 0.4 mg/dL (0.3-1.2); Total Protein 6.7 g/dL (6.2-8.2)
[2020-07-27 04:31] LABS: T4, Free (Free Thyroxine) 1.5 ng/dL (0.80-1.80)
== END | disposition home or self-care (01) ==
LOC: LABWHC1 11:51
PROVIDERS: ATTEND Internal Medicine
DX: C73 Malignant neoplasm of thyroid gland (principal)
CPT/HCPCS: 36415; 80076; 82565; 84432; 84439; 84443; 85025; 86800

== ENCOUNTER → 2020-10-18 | Outpatient (CLI) | payer MEDICARE ==
[2020-10-18 19:42] LABS: Basophils # (A) 0.04 X 10*3/uL (0.00-0.10); Basophils % (A) 0.8 %; Eosinophils # (A) 0.06 X 10*3/uL (0.04-0.35); Eosinophils % (A) 1.2 %; HCT 43.1 % (37.2-46.3); HGB 14.3 g/dL (12.0-15.0); Lymphocytes # (A) 0.86 X 10*3/uL (0.90-5.00); Lymphocytes % (A) 17.5 %; MCH 31.1 pg (27.0-32.0); MCHC 33.2 g/dL (32.0-37.0); MCV 93.7 fL (80.0-97.0); Monocytes # (A) 0.38 X 10*3/uL (0.20-1.00); Monocytes % (A) 7.7 %; Neutrophils # (A) 3.56 X 10*3/uL (1.80-7.70); Neutrophils % (A) 72.4 %; Platelet Count 239 X 10*3/uL (140-440); RDW 14.8 % (11.5-14.5); WBC 4.92 X 10*3/uL (4.50-10.00)
[2020-10-19 05:06] LABS: ALT 28 U/L (8-44); AST 24 U/L (13-35); African American GFR (CKD) 112.3 (60.0-200.0); Albumin/Globulin Ratio 2.76 (1.60-3.17); Alkaline Phosphatase 122 U/L (41-126); Bilirubin, Conjugated <0.20 mg/dL (0.20-0.40); Globulin 1.7 g/dL (1.6-3.3); Non-African American GFR(CKD) 96.9 (60.0-200.0); Total Bilirubin 0.3 mg/dL (0.3-1.2); Total Protein 6.4 g/dL (6.2-8.2)
== END | disposition home or self-care (01) ==
LOC: LABWHC1 12:09
PROVIDERS: ATTEND Internal Medicine Rheumatology
DX: L40.50 Arthropathic psoriasis, unspecified (principal); D89.9 Disorder involving the immune mechanism, unspecified; Z51.81 Encounter for therapeutic drug level monitoring
CPT/HCPCS: 36415; 80076; 82565; 85025

== ENCOUNTER → 2021-04-24 | Outpatient (CLI) | payer MEDICARE ==
[2021-04-24 19:03] LABS: Basophils # (A) 0.03 X 10*3/uL (0.00-0.10); Basophils % (A) 0.5 %; Eosinophils # (A) 0.07 X 10*3/uL (0.04-0.35); Eosinophils % (A) 1.2 %; HCT 41.7 % (37.2-46.3); HGB 14.1 g/dL (12.0-15.0); Lymphocytes # (A) 0.73 X 10*3/uL (0.90-5.00); MCH 32.3 pg (27.0-32.0); MCHC 33.8 g/dL (32.0-37.0); MCV 95.4 fL (80.0-97.0); Mean Platelet Volume 10.3 fL (9.5-12.2); Monocytes # (A) 0.46 X 10*3/uL (0.20-1.00); Monocytes % (A) 8.2 %; Neutrophils # (A) 4.31 X 10*3/uL (1.80-7.70); Neutrophils % (A) 76.7 %; Platelet Count 233 X 10*3/uL (140-440); RBC 4.37 X 10*6/uL (4.10-5.20); RDW 14.7 % (11.5-14.5); WBC 5.62 X 10*3/uL (4.50-10.00)
[2021-04-26 02:18] LABS: ALT 42 U/L (8-44); AST 35 U/L (13-35); African American GFR (CKD) 113.4 (60.0-200.0); Albumin 4.6 g/dL (3.8-4.9); Albumin/Globulin Ratio 2.06 (1.60-3.17); Alkaline Phosphatase 106 U/L (41-126); Bilirubin, Conjugated <0.20 mg/dL (0.20-0.40); Globulin 2.2 g/dL (1.6-3.3); Non-African American GFR(CKD) 97.9 (60.0-200.0); Total Protein 6.9 g/dL (6.2-8.2)
== END | disposition home or self-care (01) ==
LOC: LABWHC1 12:03
PROVIDERS: ATTEND Internal Medicine Rheumatology
DX: Z51.81 Encounter for therapeutic drug level monitoring (principal); D84.9 Immunodeficiency, unspecified; L40.50 Arthropathic psoriasis, unspecified
CPT/HCPCS: 36415; 80076; 82565; 85025

== ENCOUNTER → 2021-04-24 | Outpatient (CLI) | payer MEDICARE ==
[2021-04-26 02:31] LABS: T4, Free (Free Thyroxine) 1.55 ng/dL (0.800-1.800)
== END | disposition home or self-care (01) ==
LOC: LABWHC1 12:06
PROVIDERS: ATTEND Internal Medicine
DX: C73 Malignant neoplasm of thyroid gland (principal)
CPT/HCPCS: 36415; 84432; 84439; 84443; 86800

== ENCOUNTER → 2021-07-09 | Outpatient (CLI) | payer MEDICARE ==
--- NOTE | 2021-07-11 09:34 | MM ---
Reason for exam: screening (asymptomatic). Last mammogram was performed 1 year ago. History: Patient is postmenopausal, has history of other cancer at age 50, and has history of high-risk lesion on a previous biopsy at age 48. Family history of breast cancer in maternal aunt, breast cancer in paternal aunt, and breast cancer in maternal aunt at age 68. High risk left mammotome panel of the left breast, November 11, 2013. Took hormonal contraceptives for 20 years. Physical Findings: A clinical breast exam by your physician is recommended on an annual basis and results should be correlated with mammographic findings. MG 3D Screening Mammo W/Cad Bilateral CC and MLO view(s) were taken. Prior study comparison: July 07, 2020, left breast MG 3d work up w/cad LT. July 03, 2020, bilateral MG 3d screening mammo w/cad. The breast tissue is heterogeneously dense. This may lower the sensitivity of mammography. Benign appearing bilateral calcifications. Previous mammotome biopsy in the left breast. No significant changes when compared with prior studies. ASSESSMENT: Benign, BI-RAD 2 RECOMMENDATION: Routine screening mammogram of both breasts in 1 year.
== END | disposition home or self-care (01) ==
LOC: RADMAMWWP 07:33
PROVIDERS: ATTEND Internal Medicine Geriatric Medicine
DX: Z12.31 Encounter for screening mammogram for malignant neoplasm of breast (principal); Z80.3 Family history of malignant neoplasm of breast; Z78.0 Asymptomatic menopausal state
CPT/HCPCS: 77063; 77067

== ENCOUNTER → 2021-09-13 | Outpatient (CLI) | payer MEDICARE ==
[2021-09-13 20:11] LABS: Basophils # (A) 0.03 X 10*3/uL (0.00-0.10); Basophils % (A) 0.8 %; Eosinophils % (A) 2.6 %; HCT 38.8 % (37.2-46.3); HGB 12.9 g/dL (12.0-15.0); Immature Grans, Automated 0.8 %; Lymphocytes # (A) 0.94 X 10*3/uL (0.90-5.00); Lymphocytes % (A) 24.9 %; MCH 31.1 pg (27.0-32.0); MCHC 33.2 g/dL (32.0-37.0); MCV 93.5 fL (80.0-97.0); Monocytes # (A) 0.26 X 10*3/uL (0.20-1.00); Monocytes % (A) 6.9 %; NRBC Per 100 WBC 0 /100 WBCS (0.0-0.0); Neutrophils # (A) 2.42 X 10*3/uL (1.80-7.70); Platelet Count 294 X 10*3/uL (140-440); RBC 4.15 X 10*6/uL (4.10-5.20); RDW 15.3 % (11.5-14.5); WBC 3.78 X 10*3/uL (4.50-10.00)
[2021-09-13 22:15] LABS: ALT 19 U/L (8-44); AST 17 U/L (13-35); African American GFR (CKD) 117.1 (60.0-200.0); Albumin 4.3 g/dL (3.8-4.9); Albumin/Globulin Ratio 2.07 (1.60-3.17); Alkaline Phosphatase 101 U/L (41-126); BUN/Creat Ratio 9.09 Ratio (12.00-20.00); Blood Urea Nitrogen 5.5 mg/dL (9.0-27.0); Calcium 9.2 mg/dL (8.7-10.3); Carbon Dioxide 23.5 mmol/L (20.0-27.5); Chloride 105 mmol/L (96-109); Chol/HDL Ratio 3.57 Ratio; Globulin 2.1 g/dL (1.6-3.3); Glucose 93 mg/dL (70-110); LDL Cholesterol,Calculated 75.2 mg/dL (0.0-131.0); Non-African American GFR(CKD) 101.1 (60.0-200.0); Potassium 4.4 mmol/L (3.5-5.5); Sodium 141 mmol/L (135-145); Total Protein 6.4 g/dL (6.2-8.2)
== END | disposition home or self-care (01) ==
LOC: LABWHC1 11:32
PROVIDERS: ATTEND Internal Medicine Geriatric Medicine
DX: E03.9 Hypothyroidism, unspecified (principal); E78.2 Mixed hyperlipidemia; M06.9 Rheumatoid arthritis, unspecified; R73.9 Hyperglycemia, unspecified
CPT/HCPCS: 36415; 80053; 80061; 83036; 84439; 84443; 85025

== ENCOUNTER → 2022-07-10 | Outpatient (CLI) | payer MEDICARE ==
--- NOTE | 2022-07-11 08:29 | MM ---
Reason for Exam: Screening (asymptomatic). Last screening mammogram was performed 12 month(s) ago. Patient History: Menarche at age 12. First Full-Term at age 29. Late child-bearing (after 30). Postmenopausal. Patient has history of breast feeding. Other cancer, age 50. Patient used Hormonal Contraceptives for 20 years. 11/11/2013, High risk Core Biopsy on the left side. Paternal aunt had breast cancer. Maternal aunt had breast cancer. Maternal aunt had breast cancer, age 68. Risk Values: Muna 5 year model risk: 2.2%. NCI Lifetime model risk: 12.2%. Prior Study Comparison: 04/03/2017 Bilateral Screening Mammogram, [facility]. 04/09/2018 Bilateral Screening Mammogram, [facility]. 04/22/2019 Bilateral Screening Mammogram, [facility]. 07/03/2020 Bilateral Screening Mammogram, [facility]. 07/07/2020 Left Diagnostic Mammogram, [facility]. 07/09/2021 Bilateral Screening Mammogram, [facility]. Tissue Density: The breast tissue is heterogeneously dense. This may lower the sensitivity of mammography. Findings: Analyzed By CAD. There is no suspicious group of microcalcifications or new suspicious mass in either breast. Overall Assessment: Negative, BI-RAD 1 Management: Screening Mammogram of both breasts in 1 year. A clinical breast exam by your physician is recommended on an annual basis and results should be correlated with mammographic findings. [facility] will attempt to contact patient to return for supplemental views and ultrasound if indicated. Electronically signed and approved by: Chris Stoner DO
== END | disposition home or self-care (01) ==
LOC: RADMAMWWP 10:51
PROVIDERS: ATTEND Internal Medicine Geriatric Medicine
DX: Z12.31 Encounter for screening mammogram for malignant neoplasm of breast (principal); Z78.0 Asymptomatic menopausal state; Z80.3 Family history of malignant neoplasm of breast
CPT/HCPCS: 77063; 77067

== ENCOUNTER → 2023-05-26 | Outpatient (CLI) | payer MEDICARE ==
[2023-05-26 22:18] LABS: Basophils # (A) 0.03 X 10*3/uL (0.00-0.10); Basophils % (A) 0.4 %; Eosinophils # (A) 0.11 X 10*3/uL (0.04-0.35); Eosinophils % (A) 1.6 %; HCT 37.9 % (37.2-46.3); HGB 12.6 d/dL (12.0-15.0); MCH 31.4 pg (27.0-32.0); MCHC 33.2 d/dL (32.0-37.0); MCV 94.5 FL (80.0-97.0); Mean Platelet Volume 10.2 FL (9.5-12.2); Monocytes # (A) 0.57 X 10*3/uL (0.20-1.00); Monocytes % (A) 8.1 %; NRBC Per 100 WBC 0 X 10*3/uL (0.00-0.01); Neutrophils # (A) 5.11 X 10*3/uL (1.80-7.70); Neutrophils % (A) 72.3 %; Platelet Count 282 X 10*3/uL (140-440); RBC 4.01 X 10*6/uL (4.10-5.20); RDW 13.1 % (11.5-14.5); WBC 7.06 X 10*3/uL (4.50-10.00)
[2023-05-27 07:58] LABS: ALT 34 U/L (8-44); AST 35 U/L (13-35); Albumin 4.5 d/dL (3.8-4.9); Albumin/Globulin Ratio 1.88 Ratio (1.60-3.17); Alkaline Phosphatase 124 U/L (41-126); Bilirubin, Conjugated <0.20 mg/dL (0.20-0.40); Bilirubin,Unconjugated >0 mg/dL (0.20-1.00); Globulin 2.4 d/dL (1.6-3.3); Total Bilirubin 0.2 mg/dL (0.3-1.2); Total Protein 6.9 d/dL (6.2-8.2)
== END | disposition home or self-care (01) ==
LOC: LABWHC1 15:16
PROVIDERS: ATTEND Internal Medicine Geriatric Medicine
DX: Z51.81 Encounter for therapeutic drug level monitoring (principal); D84.9 Immunodeficiency, unspecified; L40.50 Arthropathic psoriasis, unspecified; Z79.899 Other long term (current) drug therapy
CPT/HCPCS: 36415; 80076; 82565; 85025

== ENCOUNTER → 2023-07-30 | Outpatient (CLI) | payer MEDICARE ==
--- NOTE | 2023-07-31 23:56 | BD ---
EXAMINATION TYPE: Axial Bone Density DATE OF EXAM: 07/30/2023 CLINICAL HISTORY: 58 years old Female. ICD-10 CODE: M85.88 OTHER DISORDER OF BONE DENSITY Height: 5 ft 1 1/2 in Weight: 138 FRAX RISK QUESTIONS: Alcohol (3 or more units per day): no Family History (Parent hip fracture): yes Glucocorticoids (More than 3mos): no (Ex: prednisone, prednisolone, methylprednisolone, dexamethasone, and hydrocortisone). History of Fracture in Adulthood: yes Secondary Osteoporosis: 1. Type 1 Diabetes: no 2. Hyperthyroidism: no 3. Menopause before 45: yes 4. Malnutrition: no 5. Chronic liver disease: no Rheumatoid Arthritis: no Current Tobacco Use: no RISK FACTORS HISTORY OF: Surgery to Spine/Hip(right/left)/Wrist (right/left): no Family History of Osteoporosis: no Active: no Diet low in dairy products/other sources of calcium: no Postmenopausal woman: yes Take estrogen and/or progesterone medications: no Lost more than 2 inches in height since high school: no Frequent falls: no Poor Health: fair Hyperparathyroidism: no Adrenal Insufficiency: no MEDICATIONS: Thyroid Medications: yes Which medication: levothyroxine How Lon years Additional Medications: duloxetine, otezla,Abilify, Additional History: carpal wrist wrist , thyroid cancer chemo and radiation, vaginal cancer chemo and radiation EXAM MEASUREMENTS: Bone mineral densitometry was performed using the [employer] System. Bone mineral density as measured about the Lumbar spine is: ----- L1-L4(G/cm2): 1.011 T Score Values are as follows: ----- L1: -1.2 ----- L2: -1.4 ----- L3: -1.6 ----- L4: -1.5 ----- L1-L4: -1.4 Z Score Values are as follows: ----- L1: 0.0 ----- L2: -0.2 ----- L3: -0.4 ----- L4: -0.3 ----- L1-L4: -0.2 Bone mineral density has: increased 2.8 % since study of: 2019 Bone mineral density about the R hip (g/cm2): 0.839 Bone mineral density about the L hip (g/cm2): 0.750 T Score values are as follows: -----R Neck: -1.4 -----L Neck: -2.1 -----R Total: -0.6 -----L Total: -1.2 Z Score values are as follows: -----R Neck: -0.2 -----L Neck: -0.8 -----R Total: 0.3 -----L Total: -0.3 Bone mineral density has: decreased -1.3 % since study of: 2019 FRAX%s: The graph provided illustrates a 18.5 % chance for a major osteoporotic fx and a 1.4 % chance for the hips probability for fx in 10 years time. IMPRESSION: Osteopenia (T Score between -2.5 and -1). There is slightly increased risk of fracture and the patient may be considered for treatment. Re-Screen 2-5 years. NOTE: T-SCORE=SD OF THE YOUNG ADULT MEAN.
--- NOTE | 2023-08-01 15:37 | MM ---
Reason for Exam: Screening (asymptomatic). Last mammogram was performed 1 year(s) and 1 month(s) ago. Patient History: Menarche at age 12. First Full-Term at age 29. Late child-bearing (after 30). Postmenopausal. Patient has history of breast feeding. Other cancer, age 50. Patient used Hormonal Contraceptives for 20 years. 11/11/2013, High risk Core Biopsy on the left side. Paternal aunt had breast cancer. Maternal aunt had breast cancer. Maternal aunt had breast cancer, age 68. Risk Values: Muna 5 year model risk: 2.3%. NCI Lifetime model risk: 12.0%. Prior Study Comparison: 07/07/2020 Left Diagnostic Mammogram, [facility]. 07/09/2021 Bilateral Screening Mammogram, [facility]. 07/10/2022 Bilateral MG 3D screening mammo w/cad, [facility]. Tissue Density: The breast tissue is heterogeneously dense. This may lower the sensitivity of mammography. Findings: Analyzed By CAD. Pattern appears symmetrical and stable. Chronic nodularities within the left breast. There are some scattered benign-appearing calcifications. There are a few clustered heterogenous calcifications at 12:00 position right breast 5 cm from the nipple. Magnification views recommended. Left breast: No suspicious groups of microcalcifications, spiculated or lobular masses, architectural distortion or other secondary signs of malignancy are mammographically apparent.Pattern appears symmetrical and stable. Chronic nodularity is within the left breast. There are some scattered benign-appearing calcifications. There are a few clustered heterogenous calcifications at 12:00 position right breast 5 cm from the nipple. Magnification views recommended. Left breast: No suspicious groups of microcalcifications, spiculated or lobular masses, architectural distortion or other secondary signs of malignancy are mammographically apparent.Pattern appears symmetrical and stable. Chronic nodularity is within the left breast. There are some scattered benign-appearing calcifications bilaterally. Nodularities within the left breast. There are clustered heterogenous calcifications at 12:00 position right breast 5 cm from the nipple. Magnification views recommended. Left breast: No suspicious groups of microcalcifications, spiculated or lobular masses, architectural distortion or other secondary signs of malignancy are mammographically apparent. Overall Assessment: Incomplete: need additional imaging evaluation, BI-RAD 0 Management: Diagnostic Mammogram of the right breast. A negative mammogram report should not preclude additional follow up of suspicious palpable abnormalities. Patient should continue monthly self breast exam. A clinical breast exam by your physician is recommended on an annual basis and results should be correlated with mammographic findings. Electronically signed and approved by: Rayn Durand D.O. Radiologis
== END | disposition home or self-care (01) ==
LOC: RADBDWWP 12:26
PROVIDERS: ATTEND Obstetrics & Gynecology
DX: Z12.31 Encounter for screening mammogram for malignant neoplasm of breast (principal); M85.89 Other specified disorders of bone density and structure, multiple sites; Z78.0 Asymptomatic menopausal state; Z80.3 Family history of malignant neoplasm of breast
CPT/HCPCS: 77063; 77067; 77080

== ENCOUNTER → 2023-08-05 | Outpatient (CLI) | payer MEDICARE ==
--- NOTE | 2023-08-05 13:34 | MM ---
Reason for Exam: Additional evaluation requested from abnormal screening. Last screening mammogram was performed less than 1 month ago. Patient History: Menarche at age 12. First Full-Term at age 29. Late child-bearing (after 30). Postmenopausal. Patient has history of breast feeding. Other cancer, age 50. Patient used Hormonal Contraceptives for 20 years. 11/11/2013, High risk Core Biopsy on the left side. Paternal aunt had breast cancer. Maternal aunt had breast cancer. Maternal aunt had breast cancer, age 68. Risk Values: Muna 5 year model risk: 2.3%. NCI Lifetime model risk: 12.0%. Tissue Density: Right: The breast tissue is heterogeneously dense. This may lower the sensitivity of mammography. Findings: Analyzed By CAD. Pattern remains stable. Multiple grouped calcifications have developed in the upper outer mid right breast from 2020. Stereotactic core biopsy is recommended. Overall Assessment: Suspicious, BI-RAD 4 Management: Stereotactic Core Biopsy of the right breast. A negative mammogram report should not preclude additional follow up of suspicious palpable abnormalities. Patient should continue monthly self breast exam. A clinical breast exam by your physician is recommended on an annual basis and results should be correlated with mammographic findings. Electronically signed and approved by: Ryan Durand D.O. Radiologis
== END | disposition home or self-care (01) ==
LOC: RADMAMWWP 13:10
PROVIDERS: ATTEND Obstetrics & Gynecology
DX: R92.331 Mammographic heterogeneous density, right breast (principal); Z80.3 Family history of malignant neoplasm of breast; Z78.0 Asymptomatic menopausal state
CPT/HCPCS: 77065; G0279; 77061

== ENCOUNTER → 2023-08-14 | Day surgery (SDC) | payer MEDICARE ==
--- NOTE | 2023-08-14 08:39 | P.PCN ---
Date of Procedure: 08/14/23 Preoperative Diagnosis: Microcalcifications of concern right breast Postoperative Diagnosis: Same Procedure(s) Performed: Right breast stereotactic core biopsy Anesthesia: local Surgeon: Anastasiya Beaulieu Pathology: other (Right breast tissue) Condition: stable Disposition: same day Indications for Procedure: Microcalcifications of concern right breast Operative Findings: Radiographic of specimen reveals microcalcifications of concern Description of Procedure: The patient is a 58-year-old white female who on a routine mammogram was noted to have microcalcifications of concern in the right breast upper mid portion. Stereotactic core biopsy was recommended. No lesions of concern were identified on physical examination. Following informed consent the patient wished to proceed with a stereotactic core biopsy. The patient was brought to stereotactic core biopsy room. She was positioned in the upright chair. A advertising sales assistant film was obtained. The lesion was in the right breast in the upper midportion. The area of concern was identified. The CC from above approach was utilized. The lesion was targeted. The breast was prepped using chlorhexidine. 20 mL of 1% lidocaine were used to anesthetize the area of concern. A 9-gauge vacuum-assisted core rotating biopsy needle was driven to the correct coordinates. A pre-fire film was obtained and the needle was noted to be in the correct location. The needle was fired. A post fire film was obtained and the needle was noted to be in the correct location. 13 core biopsy specimens were obtained. Radiograph of the specimen revealed microcalcifications of concern had been adequately sampled. A secure frannie top hat clip was placed. The clip appeared to be in the correct location. The patient tolerated the procedure in stable condition. The patient will follow-up with Dr. Ladna next week. The specimen was sent to pathology.
--- NOTE | 2023-08-14 13:52 | MM ---
Date of Procedure: 08/14/23 Preoperative Diagnosis: Microcalcifications of concern right breast Postoperative Diagnosis: Same Procedure(s) Performed: Right breast stereotactic core biopsy Anesthesia: local Surgeon: Anastasiya Beaulieu Pathology: other (Right breast tissue) Condition: stable Disposition: same day Indications for Procedure: Microcalcifications of concern right breast Operative Findings: Radiographic of specimen reveals microcalcifications of concern Description of Procedure: The patient is a 58-year-old white female who on a routine mammogram was noted to have microcalcifications of concern in the right breast upper mid portion. Stereotactic core biopsy was recommended. No lesions of concern were identified on physical examination. Following informed consent the patient wished to proceed with a stereotactic core biopsy. The patient was brought to stereotactic core biopsy room. She was positioned in the upright chair. A cdl bulk driver film was obtained. The lesion was in the right breast in the upper midportion. The area of concern was identified. The CC from above approach was utilized. The lesion was targeted. The breast was prepped using chlorhexidine. 20 mL of 1% lidocaine were used to anesthetize the area of concern. A 9-gauge vacuum-assisted core rotating biopsy needle was driven to the correct coordinates. A pre-fire film was obtained and the needle was noted to be in the correct location. The needle was fired. A post fire film was obtained and the needle was noted to be in the correct location. 13 core biopsy specimens were obtained. Radiograph of the specimen revealed microcalcifications of concern had been adequately sampled. A secure frannie top hat clip was placed. The clip appeared to be in the correct location. The patient tolerated the procedure in stable condition. The patient will follow-up with Dr. Landa next week. The specimen was sent to pathology. [facility]
== END ==
LOC: RADMAMWWP 07:15
PROVIDERS: ATTEND Surgery
DX: D05.11 Intraductal carcinoma in situ of right breast (principal)
CPT/HCPCS: 88305; 88342; 88341; 19081; A4648

== ENCOUNTER → 2023-08-14 | Outpatient (CLI) | payer MEDICARE ==
--- NOTE | 2023-08-14 08:12 | P.GSHP ---
History of Present Illness H&P Date: 08/14/23 Chief Complaint: Abnormal right breast mammogram Marnie is a 58-year-old white female seen in consultation for Dr. Nguyen regarding an abnormal right breast mammogram. She underwent a bilateral mammogram in 1323. Additional views of the right breast were recommended. These were performed on 1923. This revealed multiple grouped calcifications in the upper outer mid right breast. Stereotactic core biopsy was recommended. This was found on a routine mammogram. The patient does not feel anything of concern in her breast. She underwent a left breast core biopsy approximately 10 years ago which was benign. She is not complaining of any nipple discharge or skin changes. She has not had any recent trauma or infection in the breast. 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 Berry and Dr. Nguyen) Hormonal HIstory: menarche: 11 breast fed: yes, age at : 30 menopause: ablation at 41 so ? age at menopause hormones: none Surgical History: right knee arthroscopy left thumb exploratory surgery in abdomen related to SCC thyroid resection elbow left Medical History: Psoriatic arthritis/psoriasis fibromyalgia fatigue Social history: Nicotine: Negative Alcohol: Occasional Drugs: Negative - Constitutional Constitutional: Denies chills, Denies fever - EENT Eyes: denies blurred vision, denies pain Ears: deny: decreased hearing, tinnitus Ears, nose, mouth and throat: Denies headache, Denies sore throat - Breasts Breasts: bilateral: as per HPI - Cardiovascular Cardiovascular: Denies chest pain, Denies shortness of breath - Respiratory Respiratory: Denies cough, Denies 7 - Gastrointestinal Gastrointestinal: Reports diarrhea - Genitourinary (Female) Genitourinary: Denies dysuria, Denies hematuria - Menstruation Menstruation: Reports as per HPI - Musculoskeletal Musculoskeletal: Reports myalgias - Integumentary Integumentary: Reports as per HPI - Neurological Neurological: Denies numbness, Denies weakness - Psychiatric Psychiatric: Reports anxiety, Reports depression - Endocrine Endocrine: Reports fatigue - Hematologic/Lymphatic Hematologic/Lymphatic: Reports as per HPI - Allergic/Immunologic Allergic/Immunologic: Reports as per HPI Past Medical History Past Medical History: Cancer, Eye Disorder, Fibromyalgia, Hyperlipidemia, Neurologic Disorder, Skin Disorder, Thyroid Disorder Additional Past Medical History / Comment(s): Psoriatic Arthritis-ON BACK,ARMS & LEGS, HX VERTIGO OFF & ON, RECENTLY DX CA-SQUAMOUS CELL OF VAGINA. 2016 Thyroid cancer with radioactive tx. History of Any Multi-Drug Resistant Organisms: None Reported Past Surgical History: Section, Orthopedic Surgery, Uterine Ablation Additional Past Surgical History / Comment(s): LT [id number]; LT KNEE SCOPE 2002; LT BREAST BX- STEREOTACTIC CORE BX 2013; RT CTR 2013;; UTERINE ABLATION 2010; 04/25/15 EXCISION OF CALCIFIED LT SUBCUTANEOUS PERINEAL TISSUE; COLONOSCOPY 2011 WITH 2 POLYPS REMOVED; NASAL SURGERY 2012, thyroidectomy. 2019 left elbow surgery Past Anesthesia/Blood Transfusion Reactions: No Reported Reaction Past Psychological History: Anxiety, Depression Additional Psychological History / Comment(s): OCC ANXIETY Smoking Status: Former smoker Past Alcohol Use History: Rare Additional Past Alcohol Use History / Comment(s): SMOKER SINCE AGE 14(1968)- HAS QUIT OFF & ON,SMOKES 1PPD. Quit smoking Past Drug Use History: None Reported - Past Family History Mother Family Medical History: Eye Disorder, Hyperlipidemia, Hypertension Additional Family Medical History / Comment(s): HEART DISEASE AND MACULAR DEGENERATION Sister(s) Family Medical History: Hyperlipidemia Additional Family Medical History / Comment(s): TWO SISTERS HAVE HYPERLIPIDEMIA Brother(s) Family Medical History: Hyperlipidemia, Hypertension Additional Family Medical History / Comment(s): BOTH BROTHERS HAVE HTN, HYPERLIPIDEMIAS, HEART DISEASE Medications and Allergies Home Medications Medication Instructions Recorded Confirmed Type Cyanocobalamin [Vitamin B-12] 1,000 mcg PO DAILY 03/30/14 08/06/23 History Simvastatin [Zocor] 20 mg PO HS 03/30/14 08/06/23 History Loratadine [Claritin] 10 mg PO DAILY 09/08/14 08/06/23 History Magnesium Gluconate [Magonate] 500 mg PO DAILY 05/31/15 08/06/23 History ARIPiprazole [Abilify] 5 mg PO HS 10/27/16 08/06/23 History Calcium Carbonate [Calcium] 600 mg PO HS 10/27/16 08/06/23 History Levothyroxine Sodium [Synthroid] 125 mcg PO DAILY 10/27/16 08/06/23 History Multivitamins, Thera [Multivitamin 1 tab PO DAILY 10/27/16 08/06/23 History (formulary)] Apremilast [Otezla] 30 mg PO BID 08/06/23 08/06/23 History DULoxetine HCL [Cymbalta] 60 mg PO BID 08/06/23 08/06/23 History busPIRone HCL 10 mg PO BID 08/06/23 08/06/23 History Allergies Allergy/AdvReac Type Severity Reaction Status Date / Time oxycodone HCl [From Percodan] Allergy Itching Verified 08/06/23 14:51 oxycodone terephthalate Allergy Itching Verified 08/06/23 14:51 [From Percodan] Surgical - Exam - General no distress - Eyes normal ocular movement - Neck trachea midline - Respiratory normal respiratory effort, clear to auscultation - Cardiovascular Rhythm: regular Heart Sounds: normal: S1, S2 - Abdomen Abdomen: soft, non tender, no guarding, no rigid, no rebound - Integumentary nrmal turgor - Neurologic no disoriented, no combative - Musculoskeletal normal gait, normal posture - Psychiatric oriented to time, oriented to person, oriented to place, speech is normal, memory intact Breast Exam: BRA: 34D inspection: Bilateral grade 2 ptosis Palpation: Right breast: Multiple positional exam fibrocystic changes no dominant masses or nodules of concern Right axilla: No adenopathy of concern Left breast: Multiple positional exam fibrocystic changes no dominant masses or nodules of concern Left axilla: No adenopathy of concern Results Mammogram results reviewed/microcalcifications of concern right breast upper outer mid breast Assessment and Plan Assessment: Impression: Radiographic microcalcifications of concern right breast Fibrocystic breast changes Prior history of squamous cell carcinoma of the vagina and medullary thyroid cancer no evidence of disease at this time Fibromyalgia Anxiety/depression Plan: Stereotactic core biopsy right breast Risk and benefits of the procedure discussed with the patient. Risks include but are not limited to bleeding, infection, reaction to the anesthetic. The pat ient understands and wishes to proceed. CC: Dr. Nguyen, Dr. Berry
== END ==
LOC: WWCWWP 07:14
PROVIDERS: ATTEND Surgery
DX: R92.8 Other abnormal and inconclusive findings on diagnostic imaging of breast (principal); E78.5 Hyperlipidemia, unspecified; F32.A Depression, unspecified; F41.9 Anxiety disorder, unspecified; M79.7 Fibromyalgia; F17.200 Nicotine dependence, unspecified, uncomplicated; N60.19 Diffuse cystic mastopathy of unspecified breast; Z79.890 Hormone replacement therapy; Z80.3 Family history of malignant neoplasm of breast; Z85.850 Personal history of malignant neoplasm of thyroid; Z88.5 Allergy status to narcotic agent; Z92.21 Personal history of antineoplastic chemotherapy; Z92.3 Personal history of irradiation; Z85.3 Personal history of malignant neoplasm of breast

== ENCOUNTER → 2023-08-22 | Outpatient (CLI) | payer MEDICARE ==
[2023-08-22 08:14] VITALS: BP 132/87; PULSE 101; RESP 17; TEMP 98.3
--- NOTE | 2023-08-22 08:23 | P.GSHP ---
History of Present Illness H&P Date: 08/22/23 Chief Complaint: DCIS right breast Marnie is a 58 year old female status post right breast stero biopsy on 08-14-23. Her pathology revelaed high grade DCIS. She tolerated the procedure without difficulty. She is here with her friend to discuss the results. Past Medical History Past Medical History: Cancer, Eye Disorder, Fibromyalgia, Hyperlipidemia, Neurologic Disorder, Skin Disorder, Thyroid Disorder Additional Past Medical History / Comment(s): Psoriatic Arthritis-ON BACK,ARMS & LEGS, HX VERTIGO OFF & ON, RECENTLY DX CA-SQUAMOUS CELL OF VAGINA. 2016 Thyroid cancer with radioactive tx. History of Any Multi-Drug Resistant Organisms: None Reported Past Surgical History: Section, Orthopedic Surgery, Uterine Ablation Additional Past Surgical History / Comment(s): LT [id number]; LT KNEE SCOPE 2002; LT BREAST BX- STEREOTACTIC CORE BX 2013; RT CTR 2013;; UTERINE ABLATION 2010; 04/25/15 EXCISION OF CALCIFIED LT SUBCUTANEOUS PERINEAL TISSUE; COLONOSCOPY 2011 WITH 2 POLYPS REMOVED; NASAL SURGERY 2012, thyroidectomy. 2019 left elbow surgery Past Anesthesia/Blood Transfusion Reactions: No Reported Reaction Past Psychological History: Anxiety, Depression Additional Psychological History / Comment(s): OCC ANXIETY Smoking Status: Former smoker Past Alcohol Use History: Rare Additional Past Alcohol Use History / Comment(s): SMOKER SINCE AGE 14(1968)- HAS QUIT OFF & ON,SMOKES 1PPD. Quit smoking Past Drug Use History: None Reported - Past Family History Mother Family Medical History: Eye Disorder, Hyperlipidemia, Hypertension Additional Family Medical History / Comment(s): HEART DISEASE AND MACULAR DEGENERATION Sister(s) Family Medical History: Hyperlipidemia Additional Family Medical History / Comment(s): TWO SISTERS HAVE HYPERLIPIDEMIA Brother(s) Family Medical History: Hyperlipidemia, Hypertension Additional Family Medical History / Comment(s): BOTH BROTHERS HAVE HTN, HYPERLIPIDEMIAS, HEART DISEASE Medications and Allergies Home Medications Medication Instructions Recorded Confirmed Type Cyanocobalamin [Vitamin B-12] 1,000 mcg PO DAILY 03/30/14 08/22/23 History Simvastatin [Zocor] 20 mg PO HS 03/30/14 08/22/23 History Loratadine [Claritin] 10 mg PO DAILY 09/08/14 08/22/23 History Magnesium Gluconate [Magonate] 500 mg PO DAILY 05/31/15 08/22/23 History ARIPiprazole [Abilify] 5 mg PO HS 10/27/16 08/22/23 History Calcium Carbonate [Calcium] 600 mg PO HS 10/27/16 08/22/23 History Levothyroxine Sodium [Synthroid] 125 mcg PO DAILY 10/27/16 08/22/23 History Multivitamins, Thera [Multivitamin 1 tab PO DAILY 10/27/16 08/22/23 History (formulary)] Apremilast [Otezla] 30 mg PO BID 08/06/23 08/22/23 History DULoxetine HCL [Cymbalta] 60 mg PO BID 08/06/23 08/22/23 History busPIRone HCL 10 mg PO BID 08/06/23 08/22/23 History Allergies Allergy/AdvReac Type Severity Reaction Status Date / Time oxycodone HCl [From Percodan] Allergy Itching Verified 08/22/23 08:09 oxycodone terephthalate Allergy Itching Verified 08/22/23 08:09 [From Percodan] Surgical - Exam Vital Signs Temp Pulse Resp BP Pulse Ox 98.3 F 101 H 17 132/87 98 08/22/23 08:10 08/22/23 08:10 08/22/23 08:10 08/22/23 08:10 08/22/23 08:10 - Eyes normal ocular movement - Neck trachea midline - Respiratory normal respiratory effort, clear to auscultation - Cardiovascular Heart Sounds: normal: S1, S2 - Integumentary Biopsy site right breast mild ecchymosis, no hematoma or infection Results Pathology results from 08-14-2023 high-grade DCIS with comedonecrosis and microcalcifications, ER positive, SD negative. Assessment and Plan Assessment: Impression: High-grade DCIS right breast Plan: Presentation of case at tumor board CC: DR. Nguyen
== END ==
LOC: WWCWWP 08:01
PROVIDERS: ATTEND Surgery
DX: D05.11 Intraductal carcinoma in situ of right breast (principal); E78.5 Hyperlipidemia, unspecified; F41.9 Anxiety disorder, unspecified; M79.7 Fibromyalgia; E07.9 Disorder of thyroid, unspecified; L40.50 Arthropathic psoriasis, unspecified; Z86.69 Personal history of other diseases of the nervous system and sense organs; Z87.2 Personal history of diseases of the skin and subcutaneous tissue; Z79.890 Hormone replacement therapy; Z87.891 Personal history of nicotine dependence; Z85.850 Personal history of malignant neoplasm of thyroid; Z88.5 Allergy status to narcotic agent

== ENCOUNTER → 2023-10-09 | Outpatient (CLI) | payer MEDICARE ==
[2023-10-09 09:26] VITALS: BP 116/78; PULSE 91; RESP 15; TEMP 98.3
--- NOTE | 2023-10-09 09:54 | P.PN ---
Subjective Progress Note Date: 10/09/23 Principal diagnosis: right breast high grade DCIS Abnormal right breast mammogram Marnie is a 58-year-old white female seen in consultation for Dr. Nguyen regarding an abnormal right breast mammogram. She underwent a bilateral mammogram on 1323. Additional views of the right breast were recommended. These were performed on 1923. This revealed multiple grouped calcifications in the upper outer mid right breast. Stereotactic core biopsy was recommended. This was found on a routine mammogram. The patient did not feel anything of concern in her breast. She underwent a left breast core biopsy approximately 10 years ago which was benign. She was not complaining of any nipple discharge or skin changes. She had not had any recent trauma or infection in the breast. 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 Presentation of case at tumor board on 09-02-23 Lesion 2.3 cm on CC view, and 1.8 CC lateral view, clip is in the area of the lesion. Plan on bracketing lesion from CC above aproach, the clip is in the location and their are some residual calcificaitons also. This was reviewed with Dr. Lee. Caffiene: 2 cups/day nicotine: none chocolate: occasional BCP: used for ab out 25 years, stopped about 15 years ago hormones: none Family history: brother: tongue cancer smoker and drinker paternal aunt: breast cancer maternal aunt (2) : breast cancer patient: SCC of vagina had chemotherapy and radiation; no surgery; diagnosed as stage 4; 8 years ago a follow up PET scan meduallary cancer Stage 4 no recurrence (follows with Dr. Berry and Dr. Nguyen) Hormonal HIstory: menarche: 11 breast fed: yes, age at : 30 menopause: ablation at 41 so ? age at menopause hormones: none Surgical History: right knee arthroscopy left thumb exploratory surgery in abdomen related to SCC thyroid resection elbow left Medical History: Psoriatic arthritis/psoriasis fibromyalgia fatigue Social history: Nicotine: Negative Alcohol: Occasional Drugs: Negative - Constitutional Constitutional: Denies chills, Denies fever - EENT Eyes: denies blurred vision, denies pain Ears: deny: decreased hearing, tinnitus Ears, nose, mouth and throat: Denies headache, Denies sore throat - Breasts Breasts: bilateral: as per HPI - Cardiovascular Cardiovascular: Denies chest pain, Denies shortness of breath - Respiratory Respiratory: Denies cough - Gastrointestinal Gastrointestinal: Reports diarrhea - Genitourinary (Female) Genitourinary: Denies dysuria, Denies hematuria - Menstruation Menstruation: Reports as per HPI - Musculoskeletal Musculoskeletal: Reports myalgias - Integumentary Integumentary: Reports as per HPI - Neurological Neurological: Denies numbness, Denies weakness - Psychiatric Psychiatric: Reports anxiety, Reports depression - Endocrine Endocrine: Reports fatigue - Hematologic/Lymphatic Hematologic/Lymphatic: Reports as per HPI - Allergic/Immunologic Allergic/Immunologic: Reports as per HPI Past Medical History Past Medical History: Cancer, Eye Disorder, Fibromyalgia, Hyperlipidemia, Neurologic Disorder, Skin Disorder, Thyroid Disorder Additional Past Medical History / Comment(s): Psoriatic Arthritis-ON BACK,ARMS & LEGS, HX VERTIGO OFF & ON, RECENTLY DX CA-SQUAMOUS CELL OF VAGINA. 2016 T hyroid cancer with radioactive tx. History of Any Multi-Drug Resistant Organisms: None Reported Past Surgical History: Section, Orthopedic Surgery, Uterine Ablation Additional Past Surgical History / Comment(s): LT [id number]; LT KNEE SCOPE 2002; LT BREAST BX- STEREOTACTIC CORE BX 2013; RT CTR 2013;; UTERINE ABLATION 2010; 04/25/15 EXCISION OF CALCIFIED LT SUBCUTANEOUS PERINEAL TISSUE; COLONOSCOPY 2011 WITH 2 POLYPS REMOVED; NASAL SURGERY 2012, thyroidectomy. 2020 left elbow surgery Past Anesthesia/Blood Transfusion Reactions: No Reported Reaction Past Psychological History: Anxiety, Depression Additional Psychological History / Comment(s): OCC ANXIETY Smoking Status: Former smoker Past Alcohol Use History: Rare Additional Past Alcohol Use History / Comment(s): SMOKER SINCE AGE 14(1968)- HAS QUIT OFF & ON,SMOKES 1PPD. Quit smoking Past Drug Use History: None Reported - Past Family History Mother Family Medical History: Eye Disorder, Hyperlipidemia, Hypertension Additional Family Medical History / Comment(s): HEART DISEASE AND MACULAR DEGENERATION Sister(s) Family Medical History: Hyperlipidemia Additional Family Medical History / Comment(s): TWO SISTERS HAVE HYPERLIPIDEMIA Brother(s) Family Medical History: Hyperlipidemia, Hypertension Additional Family Medical History / Comment(s): BOTH BROTHERS HAVE HTN, HYPERLIPIDEMIAS, HEART DISEASE Medications and Allergies Home Medications Medication Instructions Recorded Confirmed Type Cyanocobalamin [Vitamin B-12] 1,000 mcg PO DAILY 03/30/14 08/06/23 History Simvastatin [Zocor] 20 mg PO HS 03/30/14 08/06/23 History Loratadine [Claritin] 10 mg PO DAILY 09/08/14 08/06/23 History Magnesium Gluconate [Magonate] 500 mg PO DAILY 05/31/15 08/06/23 History ARIPiprazole [Abilify] 5 mg PO HS 10/27/16 08/06/23 History Calcium Carbonate [Calcium] 600 mg PO HS 10/27/16 08/06/23 History Levothyroxine Sodium [Synthroid] 125 mcg PO DAILY 10/27/16 08/06/23 History Multivitamins, Thera [Multivitamin 1 tab PO DAILY 10/27/16 08/06/23 History (formulary)] Apremilast [Otezla] 30 mg PO BID 08/06/23 08/06/23 History DULoxetine HCL [Cymbalta] 60 mg PO BID 08/06/23 08/06/23 History busPIRone HCL 10 mg PO BID 08/06/23 08/06/23 History Allergies Allergy/AdvReac Type Severity Reaction Status Date / Time oxycodone HCl [From Percodan] Allergy Itching Verified 08/06/23 14:51 oxycodone terephthalate Allergy Itching Verified 08/06/23 14:51 [From Percodan] Objective - Vital Signs Vital signs: Vital Signs Temp 98.3 F 10/09/23 09:22 Pulse 91 10/09/23 09:22 Resp 15 10/09/23 09:22 BP 116/78 10/09/23 09:22 Pulse Ox 98 10/09/23 09:22 FiO2 Intake & Output 10/08/23 10/09/23 10/09/23 18:59 06:59 18:59 Weight 63.049 kg - Constitutional General appearance: Present: cooperative - EENT Eyes: Present: EOMI ENT: Present: hearing grossly normal - Neck Neck: Present: normal ROM - Respiratory Respiratory: bilateral: CTA - Cardiovascular Rhythm: regular Heart sounds: normal: S1, S2 - Gastrointestinal General gastrointestinal: Present: soft - Integumentary Integumentary: Present: normal turgor - Musculoskeletal Musculoskeletal: Present: gait normal - Psychiatric Psychiatric: Present: A&O x's 3, appropriate affect, intact judgment & insight - Additional findings Additional findings: Breast Exam: BRA: 34D inspection: Bilateral grade 2 ptosis Palpation: Right breast: Multiple positional exam fibrocystic changes no dominant masses or nodules of concern, biopsy site clean and dry no evidence of infection Right axilla: No adenopathy of concern Left breast: Multiple positional exam fibrocystic changes no dominant masses or nodules of concern Left axilla: No adenopathy of concern Assessment and Plan Assessment: Impression: DCIS right breast Fibrocystic breast changes Prior history of squamous cell carcinoma of the vagina and medullary thyroid cancer no evidence of disease at this time Fibromyalgia Anxiety/depression Plan: Right breast needle localization/bracketing CC from above approach reviewed with Dr. Lee, lumpectomy, right sentinel node injection, right sentinel node biopsy, possible right axillary node dissection, possible oncoplastic tissue transfer, mastopexy incision to be used clearance form DR. Nguyen Risk and benefits of the procedure discussed with the patient. Risks include but are not limited to bleeding, infection, reaction to the anesthetic. The patient understands and wishes to proceed. The patient understands that if the margins were to be positive then further tissue acquisition may be necessary. CC: Dr. Nguyen, Dr. Berry
== END ==
LOC: WWCWWP 08:59
PROVIDERS: ATTEND Surgery
DX: D05.11 Intraductal carcinoma in situ of right breast (principal); N60.11 Diffuse cystic mastopathy of right breast; N60.12 Diffuse cystic mastopathy of left breast; M79.7 Fibromyalgia; F41.9 Anxiety disorder, unspecified; F32.A Depression, unspecified; Z80.3 Family history of malignant neoplasm of breast; Z85.850 Personal history of malignant neoplasm of thyroid; Z87.891 Personal history of nicotine dependence; Z92.3 Personal history of irradiation; Z92.21 Personal history of antineoplastic chemotherapy; Z85.828 Personal history of other malignant neoplasm of skin; Z88.5 Allergy status to narcotic agent

== ENCOUNTER → 2023-10-21 | Day surgery (SDC) | payer MEDICARE ==
[2023-10-20 11:34] VITALS: BMI 25.4
[~2023-10-21] MED LIST: ALBUTEROL HFA INHALER INHALATION ONE; GLYCOPYRROLATE 0.2 MG/ML 2 ML VIAL ONE; LACTATED RINGERS 1,000 ML IV SCH; LIDOCAINE 1% (10MG/ML) FOR IV START INTRADERMA PRN; LIDOCAINE 1% INJ 10MG/ML (20 ML MDV) ONE; MIDAZOLAM 2 MG/2 ML VIAL ONE; NEOSTIGMINE 1 MG/ML 10 ML VIAL ONE; PHENYLEPHRINE-0.9% NACL SYG 1,000 MCG/10 ML SYRINGE ONE; PROPOFOL 10 MG/ML 20 ML VIAL IV ONE; ROCURONIUM 10 MG/ML (5 ML VIAL) IV ONE; SUCCINYLCHOLINE CHLORIDE 200 MG/10 ML VIAL IV ONE; droPERidol 5 MG/2 ML VIAL IVP ONE; fentaNYL (PF) 50 MCG/ML 2 ML AMP IV PRN; fentaNYL (PF) 50 MCG/ML 2 ML AMP ONE
[2023-10-21] MEDS: LACTATED RINGERS 1,000 ML IV ONE ×2 (11:55→17:20)
[2023-10-21] MEDS: ALPRAZolam 0.5 MG TAB PO STA (12:18)
[2023-10-21] MEDS: LIDOCAINE 1% INJ 10MG/ML (20 ML MDV) SQ ONE ×4 (12:51→17:27)
[2023-10-21] MEDS: DEXAMETHASONE SOD PHOSPHATE 4 MG/ML 1 ML VIAL IV ONE (13:33)
[2023-10-21] MEDS: HEPARIN SODIUM,PORCINE 5,000 UNIT/ML 1 ML VIAL SQ PRN (13:33)
[2023-10-21] MEDS: ONDANSETRON 4 MG/2 ML VIAL IVP ONE (13:33)
--- NOTE | 2023-10-21 15:07 | P.NAPBC ---
NAPBC Queries - NAPBC Queries Was patient's case review presented at [facility] tumor board? If no, comment.: Yes Was patient's pathology reviewed at [facility]? If no, comment.: Yes Was breast conservation surgery offered? If no, comment.: Yes Was sentinel node biopsy offered? If no, comment.: Yes Was diagnosis confirmed by percutaneous core biopsy? If no, comment.: Yes Is patient mastectomy patient?: No Was a preop referral to reconstructive surgeon offered?: No Clinical Stage: right breast DCIS
--- NOTE | 2023-10-21 17:27 | P.OP ---
Date of Procedure: 10/21/23 Preoperative Diagnosis: Right breast DCIS Postoperative Diagnosis: same Procedure(s) Performed: Right breast sentinel node biopsy, needle localization lumpectomy, oncoplastic tissue transfer for 124 cm Anesthesia: SOFIA Surgeon: Anastasiya Beaulieu Estimated Blood Loss (ml): 15 IV fluids (ml): 900 Pathology: other (Breast tissue, axillary node/sentinel node) Condition: stable Disposition: same day Indications for Procedure: DCIS right breast, several centimeters in size Operative Findings: Fibrofatty breast tissue Description of Procedure: Marnie is a 58-year-old female with a diagnosis of right breast ductal carcinoma in situ, this was several centimeters in size. The patient was recommended to undergo a bracketing of the area with lumpectomy. Additionally secondary to the size she would undergo a sentinel node biopsy. The patient was initially seen in the radiology department where bracketing of the lesion was performed. Additionally sentinel node radiotracer injection was placed. The patient was then brought to the operative suite. Following induction of anesthesia the neoprobe was used to interrogate the axilla and radioactivity was noted in the axilla. The right breast and axilla were then prepped and draped in a sterile fashion. Using the greatest radioactivity on the neoprobe as an indication the axilla was entered. An incision was made and carried through the skin and subcutaneous tissue to the axillary tissue. Using the neoprobe the area of greatest radioactivity was grasped using an Allis clamp. Using the harmonic scalpel this area was resected. The 10-second count on the sentinel node was 8555 An additional lymph node was identified and the 10-second count was 608. Both were removed. No other palpable adenopathy of concern was identified. The 10-second background count was 30. After reassured that hemostasis was attained the wound was well irrigated. The deep tissues were closed using 3-0 Vicryl suture. The skin was closed using 4-0 Monocryl. The area of the breast was approached. We were initially going to use a mastopexy incision however secondary to the distance from the nipple areolar complex of the lesion the patient opted for a more standard incision. 2 needles had been placed in the cc location of the breast. These bracketed the area of concern. An incision was made between the 2 needles. Dissection in the plane between the subcutaneous tissue and the breast tissue was performed both superiorly and inferiorly. The needles were brought out into the incision. Both areas were grasped using an Allis clamp. Dissection was performed anterior to the more anterior clip and posterior to the more posterior clip down to the pectoralis muscle. Circumferential dissecion of the tissue was onto the pectoralis muscle. Anteriorly dissection was immediately under the skin in the area of the subcutaneous tissue. The size of the specimen was 8 x 7 cm. The specimen was painted for orientation. Titanium clips were placed in the cavity after we are sure that hemostasis was attained. A superior pillar 4 x 7 cm was formed, an inferior pillar 8 x 4 cm was formed. The radiograph of the specimen revealed the area of concern had been removed. Superior and inferior pillar were brought together using 3-0 Vicryl suture. Total oncoplastic tissue transfer was 102 cm. After we were assured that hemostasis was attained the deep tissues in the subcutaneous area were brought together using 3-0 Vicryl suture. This was followed by closure of the skin with 4-0 Monocryl. 10 cc of 1% lidocaine were injected into the area of the incision. The patient tolerated the procedure in stable condition. All instrument and sponge counts were correct at the end of the case.
[2023-10-21 18:15] VITALS: RESP 14; TEMP 97
[2023-10-21 18:46] VITALS: BP 140/88; PULSE 90
--- NOTE | 2023-10-21 19:40 | NM ---
EXAMINATION TYPE: NM sentinel node injection DATE OF EXAM: 10/21/2023 COMPARISON: NONE INDICATION: Abnormal mammogram. Informed consent was obtained. A timeout was performed. The area around the right nipple was cleansed with alcohol. In a single dose, a total of 517 uCi Te chnetium 99m Tilmanocept was injected. The patient tolerated the procedure very well. IMPRESSION: 1. Successful injection for sentinel node evaluation.
== END | disposition home or self-care (01) ==
LOC: OR 11:27
PROVIDERS: ATTEND Surgery
DX: D05.11 Intraductal carcinoma in situ of right breast (principal)
CPT/HCPCS: 19301; 38525; 88342; 88307; 88341; 76098; 19281; 38792; C1819 ×2; A9520; J2250; J0330; J1644; J1100; J2710; J0690; J2405; J2001; J3010; J2704; J2371

== ENCOUNTER → 2023-10-30 | Outpatient (CLI) | payer MEDICARE ==
[2023-10-30 09:38] VITALS: BP 132/89; PULSE 97; RESP 17; TEMP 97.8
--- NOTE | 2023-10-30 09:48 | P.PN ---
Progress Note - Text Progress Note Date: 10/30/23 Marnie is status post right breast lumpectomy and axillary node sampling on 10-21-2023. 11 lymph nodes were removed all were negative for mets. The tumor was 2.4 cm it was high-grade and margins were negative. The distance to the closest margin was 1 mm from a green/black inked margin. There is some question as to whether this represented the superior or inferior margin. The patient has declined further resection in the operating room. Her case was reviewed with Dr. Erickson from radiology and it is felt that all the calcifications of concern have been removed. Additionally her case was discussed with Dr. Jack from pathology and it was felt that the area of concern was less than 2 mm. Discussed with her that the standard option is to get a 2 mm margin however at this time she would like to avoid surgery. She understands that if on a repeat radiograph calcifications of concern are noted or any changes then additional surgery would be necessary. lungs: clear heart: Incision breast and axilla clean and dry Impression: Close margin most likely superior area, this has been reviewed with pathology and radiation oncology At this time the patient would prefer to avoid additional surgical resection Plan: Radiation therapy Hormone therapy Appointment with medical oncology Appointment radiation oncology The patient understands that if on additional radiographic workup we were noted to see additional calcifications or calcifications of concern further resection would be recommended. follow up in 4 months CC: Dr. Nguyen
== END ==
LOC: WWCWWP 08:42
PROVIDERS: ATTEND Surgery
DX: R92.1 Mammographic calcification found on diagnostic imaging of breast (principal); N63.10 Unspecified lump in the right breast, unspecified quadrant; F17.200 Nicotine dependence, unspecified, uncomplicated; Z98.890 Other specified postprocedural states; Z88.5 Allergy status to narcotic agent

== ENCOUNTER → 2023-11-20 | Outpatient (CLI) | payer MEDICARE ==
--- NOTE | 2023-11-20 09:51 | P.CON ---
Consult Note - . Consult date: 11/20/23 Assessment/Plan:: Progress Note - Text Progress Note Date: Marnie is status post right breast lumpectomy and axillary node sampling on 10-21-2023. 11 lymph nodes were removed all were negative for mets. The tumor was 2.4 cm it was high-grade and margins were negative. The distance to the closest margin was 1 mm from a green/black inked margin. There is some question as to whether this represented the superior or inferior margin. The patient has declined further resection in the operating room. Her case was reviewed with Dr. Erickson from radiology and it is felt that all the calcificati ons of concern have been removed. Additionally her case was discussed with Dr. Jack from pathology and it was felt that the area of concern was less than 2 mm. Discussed with her that the standard option is to get a 2 mm margin however at this time she would like to avoid surgery. She understands that if on a repeat radiograph calcifications of concern are noted or any changes then additional surgery would be necessary. The patient's case was presented at tumor board on 11-18-2023. Both her radiographic slides as well as her pathology slides were reviewed at the conference. All areas of calcification on the radiographic slides were removed. The consensus was that the area of close margin was approximately 2 mm. With that information and margin being negative it was felt that she could be followed conservatively with hormone therapy and radiation therapy. I have called the patient with that information. We have given her the option of further resection but she would prefer further surgery if possible. Therefore she will meet with medical and radiation oncology. She will follow-up here in approximately 4 months. She will follow-up sooner any questions or concerns. The patient states that yesterday she noted some erythema and itching around the nipple areolar region and the lateral aspect of the breast. She has not had any fever or chills. lungs: clear heart: Incision breast and axilla clean and dry; seroma present Impression: Close margin most likely superior area, this has been reviewed with pathology and radiation oncology At this time the patient would prefer to avoid additional surgical resection Plan: Radiation therapy Hormone therapy Appointment with medical oncology Appointment radiation oncology appointment with dermatology CC: Dr. Nguyen Additional CC's: Reji Nguyen
[2023-11-20 10:12] VITALS: BP 116/82; PULSE 99; RESP 15; TEMP 98.6
== END ==
LOC: WWCWWP 09:26
PROVIDERS: ATTEND Surgery
DX: R92.1 Mammographic calcification found on diagnostic imaging of breast (principal); N64.89 Other specified disorders of breast; R21 Rash and other nonspecific skin eruption; L53.8 Other specified erythematous conditions; L29.8 Other pruritus; F17.200 Nicotine dependence, unspecified, uncomplicated; Z87.2 Personal history of diseases of the skin and subcutaneous tissue; Z98.890 Other specified postprocedural states; Z48.817 Encounter for surgical aftercare following surgery on the skin and subcutaneous tissue; Z88.5 Allergy status to narcotic agent

== ENCOUNTER → 2023-11-28 | Outpatient (CLI) | payer MEDICARE ==
--- NOTE | 2023-11-28 08:16 | P.CON ---
Consult Note - . Consult date: 11/28/23 Assessment/Plan:: The area of concern in the right breast was prepped using alcohol. A 18-gauge needle on a 10 cc syringe was used to aspirate approximately 120 cc of serous fluid. The patient does have a rash surrounding the areola more to the lateral side. This does not appear to be an infection. The patient does have a history of psoriasis. 11-28-23 Marnie is status post right breast lumpectomy and axillary node sampling on 10-21-2023. 11 lymph nodes were removed all were negative for mets. The tumor was 2.4 cm it was high-grade and margins were negative. The distance to the closest margin was 1 mm from a green/black inked margin. There is some question as to whether this represented the superior or inferior margin. The patient has declined further resection in the operating room. Her case was reviewed with Dr. Erickson from radiology and it is felt that all the calcifications of concern have been removed. Additionally her case was discussed with Dr. Jack from pathology and it was felt that the area of concern was less than 2 mm. Discussed with her that the standard option is to get a 2 mm margin however at this time she would like to avoid surgery. She understands that if on a repeat radiograph calcifications of concern are noted or any changes then additional surgery would be necessary. The patient's case was presented at tumor board on 11-18-2023. Both her radiographic slides as well as her pathology slides were reviewed at the conference. All areas of calcification on the radiographic slides were removed. The consensus was that the area of close margin was approximately 2 mm. With that information and margin being negative it was felt that she could be followed conservatively with hormone therapy and radiation therapy. I have called the patient with that information. We have given her the option of further resection but she would prefer no further surgery if possible. Therefore she will meet with medical and radiation oncology. She will follow-up here in approximately 4 months. She will follow-up sooner any questions or concerns. The patient was seen by dermatology regarding a rash which had developed over the right breast. She was given an ointment and a cream and has had marked resolution of the rash. She was told it was dermatitis of unspecified etiology. A seroma of approximately 120 cc was aspirated on 11-20-23. She is seen today to reevaluate for possible seroma. The rash has largely resolved. There is mild erythema of the breast. Examination: There appears to be a small seroma at the lumpectomy site right breast for which aspiration is recommended Mild erythema of the inferior aspect of the right breast Resolution of dermatitis on the breast Incision breast and axilla are clean and dry Following informed consent The area of the breast was prepped using alcohol. An 18-gauge needle and a 20 cc syringe was in inserted into the area of concern. 60 cc of straw-colored fluid was removed with complete resolution of the seroma. Impression/Plan: Appointment medical oncology Appointment radiation oncology Patient doing well postop resolution of rash/no evidence of infection The patient is going to be seen next week to reevaluate for recurrence of possible seroma She will most likely start radiation therapy next week Additional CC's: Reji Nguyen
[2023-11-28 08:57] VITALS: BP 121/83; PULSE 104; RESP 17; TEMP 97.8
== END ==
LOC: WWCWWP 07:59
PROVIDERS: ATTEND Surgery
DX: R92.1 Mammographic calcification found on diagnostic imaging of breast (principal); L30.9 Dermatitis, unspecified; L76.33 Postprocedural seroma of skin and subcutaneous tissue following a dermatologic procedure; L53.8 Other specified erythematous conditions; F17.200 Nicotine dependence, unspecified, uncomplicated; Z85.3 Personal history of malignant neoplasm of breast; Z48.817 Encounter for surgical aftercare following surgery on the skin and subcutaneous tissue; Z88.5 Allergy status to narcotic agent; Z87.2 Personal history of diseases of the skin and subcutaneous tissue

== ENCOUNTER → 2023-12-04 | Outpatient (CLI) | payer MEDICARE ==
--- NOTE | 2023-12-04 08:32 | P.CON ---
Consult Note - . Consult date: 12/04/23 Assessment/Plan:: 12-04-23 Marnie is status post right breast lumpectomy and axillary node sampling on 10-21-2023. 11 lymph nodes were removed all were negative for mets. The tumor was 2.4 cm it was high-grade and margins were negative. The distance to the closest margin was 1 mm from a green/black inked margin. There is some question as to whether this represented the superior or inferior margin. The patient has declined further resection in the operating room. Her case was reviewed with Dr. Erickson from radiology and it is felt that all the calcifications of concern have been removed. Additionally her case was discussed with Dr. Jack from pathology and it was felt that the area of concern was less than 2 mm. Discussed with her that the standard option is to get a 2 mm margin however at this time she would like to avoid surgery. She understands that if on a repeat radiograph calcifications of concern are noted or any changes then additional surgery would be necessary. The patient's case was presented at tumor board on 11-18-2023. Both her radiographic slides as well as her pathology slides were reviewed at the conference. All areas of calcification on the radiographic slides were removed. The consensus was that the area of close margin was approximately 2 mm. With that information and margin being negative it was felt that she could be followed conservatively with hormone therapy and radiation therapy. I have called the patient with that information. We have given her the option of further resection but she would prefer no further surgery if possible. Therefore she will meet with medical and radiation oncology. The patient was seen by dermatology regarding a rash which had developed over the right breast. She was given an ointment and a cream and has had marked resolution of the rash. She was told it was dermatitis of unspecified etiology. A seroma of approximately 120 cc was aspirated on 11-20-23. She is seen today to reevaluate for possible seroma. The rash has largely resolved. There is mild erythema of the breast. on 11-28-23 a 120 cc seroma was aspirated Examination: There is question of a small seroma at the lumpectomy site right breast for which aspiration will be attempted Resolution of dermatitis on the breast Incision breast and axilla are clean and dry The area of concern in the right breast was prepped using alcohol and an 18- gauge needle on a 20 cc syringe was used to aspirate the area Approximately 5 cc of straw-colored fluid was aspirated there was no further evidence of seroma Impression: Patient doing well postop Plan: Follow-up with radiation oncology Follow-up medical oncology Follow-up here in 4 months
[2023-12-04 09:53] VITALS: BP 134/85; PULSE 97; RESP 17; TEMP 98.1
== END ==
LOC: WWCWWP 08:15
PROVIDERS: ATTEND Surgery
DX: R92.1 Mammographic calcification found on diagnostic imaging of breast (principal); L30.9 Dermatitis, unspecified; L76.33 Postprocedural seroma of skin and subcutaneous tissue following a dermatologic procedure; N64.89 Other specified disorders of breast; F17.200 Nicotine dependence, unspecified, uncomplicated; Z48.817 Encounter for surgical aftercare following surgery on the skin and subcutaneous tissue; Z98.890 Other specified postprocedural states; Z88.5 Allergy status to narcotic agent

== ENCOUNTER → 2024-04-23 | Outpatient (CLI) | payer MEDICARE ==
[2024-04-23 10:52] VITALS: BP 125/83; PULSE 88; RESP 17; TEMP 97.4
--- NOTE | 2024-04-23 11:07 | P.PN ---
Subjective Progress Note Date: 04/23/24 Principal diagnosis: 10/09/23 Principal diagnosis: right breast high grade DCIS right breast high grade DCIS Abnormal right breast mammogram Marnie is a 58-year-old white female seen in consultation for Dr. Nguyen regarding an abnormal right breast mammogram. She underwent a bilateral mammogram on 1323. Additional views of the right breast were recommended. These were performed on 1923. This revealed multiple grouped calcifications in the upper outer mid right breast. Stereotactic core biopsy was recommended. This was found on a routine mammogram. The patient did not feel anything of concern in her breast. She underwent a left breast core biopsy approximately 10 years ago which was benign. She was not complaining of any nipple discharge or skin changes. She had not had any recent trauma or infection in the breast. 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 Presentation of case at tumor board on 09-02-23 Lesion 2.3 cm on CC view, and 1.8 CC lateral view, clip is in the area of the lesion. Plan on bracketing lesion from CC above aproach, the clip is in the location and their are some residual calcificaitons also. This was reviewed with Dr. Lee. lumpectomy on 10-21-23; 1 margin < 1mm all margins (-); 11 nodes all (-) patient given option of re-excision and declined recommended radiation and hormone therapy note medical oncology 01-01-24 reviewed recommend exmestane, she is having hot flashes note radiation oncology reviewed 12-04-23; completed in mid January It is firm at the lumpectomy site in the right breast which started about three weeks after radiation started She is following with DR. Berry regarding colby SCC fo the vagina Caffiene: 2 cups/day nicotine: none chocolate: occasional BCP: used for ab out 25 years, stopped about 15 years ago hormones: none Family history: brother: tongue cancer smoker and drinker paternal aunt: breast cancer maternal aunt (2) : breast cancer patient: SCC of vagina had chemotherapy and radiation; no surgery; diagnosed as stage 4; 8 years ago a follow up PET scan meduallary cancer Stage 4 no recurrence (follows with Dr. Berry and Dr. Nguyen) Hormonal HIstory: menarche: 11 breast fed: yes, age at : 30 menopause: ablation at 41 so ? age at menopause hormones: none Surgical History: right knee arthroscopy left thumb exploratory surgery in abdomen related to SCC thyroid resection elbow left bilateral catarat surgery Medical History: Psoriatic arthritis/psoriasis fibromyalgia fatigue Social history: Nicotine: Negative Alcohol: Occasional Drugs: Negative - Constitutional Constitutional: Denies chills, Denies fever - EENT Eyes: denies blurred vision, denies pain Ears: deny: decreased hearing, tinnitus Ears, nose, mouth and throat: Denies headache, Denies sore throat - Breasts Breasts: bilateral: as per HPI - Cardiovascular Cardiovascular: Denies chest pain, Denies shortness of breath - Respiratory Respiratory: Denies cough - Gastrointestinal Gastrointestinal: Reports diarrhea - Genitourinary (Female) Genitourinary: Denies dysuria, Denies hematuria - Menstruation Menstruation: Reports as per HPI - Musculoskeletal Musculoskeletal: Reports myalgias - Integumentary Integumentary: Reports as per HPI - Neurological Neurological: Denies numbness, Denies weakness - Psychiatric Psychiatric: Reports anxiety, Reports depression - Endocrine Endocrine: Reports fatigue - Hematologic/Lymphatic Hematologic/Lymphatic: Reports as per HPI - Allergic/Immunologic Allergic/Immunologic: Reports as per HPI Past Medical History Past Medical History: Cancer, Eye Disorder, Fibromyalgia, Hyperlipidemia, Neurologic Disorder, Skin Disorder, Thyroid Disorder Additional Past Medical History / Comment(s): Psoriatic Arthritis-ON BACK,ARMS & LEGS, HX VERTIGO OFF & ON, RECENTLY DX CA-SQUAMOUS CELL OF VAGINA. 2016 Thyroid cancer with radioactive tx. History of Any Multi-Drug Resistant Organisms: None Reported Past Surgical History: Section, Orthopedic Surgery, Uterine Ablation Additional Past Surgical History / Comment(s): LT [id number]; LT KNEE SCOPE 2002; LT BREAST BX- STEREOTACTIC CORE BX 2013; RT CTR 2013;; UTERINE ABLATION 2010; 04/25/15 EXCISION OF CALCIFIED LT SUBCUTANEOUS PERINEAL TISSUE; COLONOSCOPY 2011 WITH 2 POLYPS REMOVED; NASAL SURGERY 2012, thyroidectomy. 2020 left elbow surgery Past Anesthesia/Blood Transfusion Reactions: No Reported Reaction Past Psychological History: Anxiety, Depression Additional Psychological History / Comment(s): OCC ANXIETY Smoking Status: Former smoker Past Alcohol Use History: Rare Additional Past Alcohol Use History / Comment(s): SMOKER SINCE AGE 14(1968)- HAS QUIT OFF & ON,SMOKES 1PPD. Quit smoking Past Drug Use History: None Reported - Past Family History Mother Family Medical History: Eye Disorder, Hyperlipidemia, Hypertension Additional Family Medical History / Comment(s): HEART DISEASE AND MACULAR DEGEN ERATION Sister(s) Family Medical History: Hyperlipidemia Additional Family Medical History / Comment(s): TWO SISTERS HAVE HYPERLIPIDEMIA Brother(s) Family Medical History: Hyperlipidemia, Hypertension Additional Family Medical History / Comment(s): BOTH BROTHERS HAVE HTN, HYPERLIPIDEMIAS, HEART DISEASE Medications and Allergies Home Medications Medication Instructions Recorded Confirmed Type Cyanocobalamin [Vitamin B-12] 1,000 mcg PO DAILY 03/30/14 08/06/23 History Simvastatin [Zocor] 20 mg PO HS 03/30/14 08/06/23 History Loratadine [Claritin] 10 mg PO DAILY 09/08/14 08/06/23 History Magnesium Gluconate [Magonate] 500 mg PO DAILY 05/31/15 08/06/23 History ARIPiprazole [Abilify] 5 mg PO HS 10/27/16 08/06/23 History Calcium Carbonate [Calcium] 600 mg PO HS 10/27/16 08/06/23 History Levothyroxine Sodium [Synthroid] 125 mcg PO DAILY 10/27/16 08/06/23 History Multivitamins, Thera [Multivitamin 1 tab PO DAILY 10/27/16 08/06/23 History (formulary)] Apremilast [Otezla] 30 mg PO BID 08/06/23 08/06/23 History DULoxetine HCL [Cymbalta] 60 mg PO BID 08/06/23 08/06/23 History busPIRone HCL 10 mg PO BID 08/06/23 08/06/23 History Allergies Allergy/AdvReac Type Severity Reaction Status Date / Time oxycodone HCl [From Percodan] Allergy Itching Verified 08/06/23 14:51 oxycodone terephthalate Allergy Itching Verified 08/06/23 14:51 [From Percodan] Objective - Vital Signs Vital signs: Vital Signs Temp 97.4 F L 04/23/24 10:49 Pulse 88 04/23/24 10:49 Resp 17 04/23/24 10:49 BP 125/83 04/23/24 10:49 Pulse Ox 98 04/23/24 10:49 FiO2 Intake & Output 04/22/24 04/23/24 04/23/24 18:59 06:59 18:59 Weight 64.41 kg - Constitutional General appearance: Present: cooperative - EENT Eyes: Present: EOMI ENT: Present: hearing grossly normal - Neck Neck: Present: normal ROM - Respiratory Respiratory: bilateral: CTA - Cardiovascular Rhythm: regular Heart sounds: normal: S1, S2 - Integumentary Integumentary: Present: normal turgor - Musculoskeletal Musculoskeletal: Present: gait normal - Psychiatric Psychiatric: Present: A&O x's 3, appropriate affect, intact judgment & insight - Additional findings Additional findings: Breast Exam: BRA: 34D inspection: Bilateral grade 2 ptosis Palpation: Right breast: Multiple positional exam fibrocystic changes no dominant masses or nodules of concern, biopsy site clean and dry no evidence of infection pjrobable seroma right breast at lumpectomy site Right axilla: No adenopathy of concern Left breast: Multiple positional exam fibrocystic changes no dominant masses or nodules of concern Left axilla: No adenopathy of concern Assessment and Plan Assessment: Impression: DCIS right breast Fibrocystic breast changes Prior history of squamous cell carcinoma of the vagina and medullary thyroid cancer no evidence of disease at this time Fibromyalgia Anxiety/depression probalbe seroma of the right breast Plan: Continue exemestane Continue to follow with Dr. Berry regarding vaginal cancer Bilateral mammogram in July with physician exam at that time Attempted aspiration of right breast probable seroma CC: Dr. Nguyen, Dr. Berry
== END ==
LOC: WWCWWP 09:48
PROVIDERS: ATTEND Surgery
DX: R92.1 Mammographic calcification found on diagnostic imaging of breast (principal); R92.8 Other abnormal and inconclusive findings on diagnostic imaging of breast; D05.11 Intraductal carcinoma in situ of right breast; N60.11 Diffuse cystic mastopathy of right breast; N60.12 Diffuse cystic mastopathy of left breast; N64.89 Other specified disorders of breast; M79.7 Fibromyalgia; F41.9 Anxiety disorder, unspecified; F32.A Depression, unspecified; Z92.3 Personal history of irradiation; Z80.3 Family history of malignant neoplasm of breast; Z87.891 Personal history of nicotine dependence; Z85.850 Personal history of malignant neoplasm of thyroid; Z88.5 Allergy status to narcotic agent

== ENCOUNTER → 2024-05-14 | Outpatient (CLI) | payer MEDICARE ==
[2024-05-14 09:46] VITALS: BP 117/79; PULSE 102; RESP 18; TEMP 98.9
--- NOTE | 2024-05-14 10:02 | P.PN ---
Subjective Progress Note Date: 05/14/24 Subjective Progress Note Date: 05-14-24 right breast high grade DCIS July 2023 Marnie is a 58-year-old white female seen in consultation for Dr. Nguyen regarding an abnormal right breast mammogram. She underwent a bilateral mammogram on 1323. Additional views of the right breast were recommended. These were performed on 1923. This revealed multiple grouped calcifications in the upper outer mid right breast. Stereotactic core biopsy was recommended. This was found on a routine mammogram. The patient did not feel anything of concern in her breast. She underwent a left breast core biopsy approximately 10 years ago which was benign. She was not complaining of any nipple discharge or skin changes. She had not had any recent trauma or infection in the breast. 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 Presentation of case at tumor board on 09-02-23 Lesion 2.3 cm on CC view, and 1.8 CC lateral view, clip is in the area of the lesion. Plan on bracketing lesion from CC above aproach, the clip is in the location and their are some residual calcificaitons also. This was reviewed with Dr. Lee. lumpectomy on 10-21-23; 1 margin < 1mm all margins (-); 11 nodes all (-) patient given option of re-excision and declined recommended radiation and hormone therapy note medical oncology 01-01-24 reviewed recommend exmestane, she is having hot flashes note radiation oncology reviewed 12-04-23; completed in mid January On her last visit of 04-23-24 it was firm firm at the lumpectomy site in the right breast which started about three weeks after radiation started She is following with DR. Berry regarding colby SCC fo the vagina After consent on 04-23-24 the area of concern in the right breast was prepped using alcohol. An 18-gauge needle and a 20 cc syringe was used to aspirate 115 cc of straw-colored fluid. There was complete resolution of the seroma. The patient tolerated this without difficulty. Today concerned about some dimpling in the periareolar region of the right breast. She noted yesterday, she is not complaining of any lumps masses or nodules of concern. Did have aspiration of the right breast on her last visit which was on 04-23-2024. Caffiene: 2 cups/day nicotine: none chocolate: occasional BCP: used for ab out 25 years, stopped about 15 years ago hormones: none Family history: brother: tongue cancer smoker and drinker paternal aunt: breast cancer maternal aunt (2) : breast cancer patient: SCC of vagina had chemotherapy and radiation; no surgery; diagnosed as stage 4; 8 years ago a follow up PET scan meduallary cancer Stage 4 no recurrence (follows with Dr. Berry and Dr. Nguyen) Hormonal HIstory: menarche: 11 breast fed: yes, age at : 30 menopause: ablation at 41 so ? age at menopause hormones: none Surgical History: right knee arthroscopy left thumb exploratory surgery in abdomen related to SCC thyroid resection elbow left bilateral catarat surgery Medical History: Psoriatic arthritis/psoriasis fibromyalgia fatigue Social history: Nicotine: Negative Alcohol: Occasional Drugs: Negative - Constitutional Constitutional: Denies chills, Denies fever - EENT Eyes: denies blurred vision, denies pain Ears: deny: decreased hearing, tinnitus Ears, nose, mouth and throat: Denies headache, Denies sore throat - Breasts Breasts: bilateral: as per HPI - Cardiovascular Cardiovascular: Denies chest pain, Denies shortness of breath - Respiratory Respiratory: Denies cough - Gastrointestinal Gastrointestinal: Reports diarrhea - Genitourinary (Female) Genitourinary: Denies dysuria, Denies hematuria - Menstruation Menstruation: Reports as per HPI - Musculoskeletal Musculoskeletal: Reports myalgias - Integumentary Integumentary: Reports as per HPI - Neurological Neurological: Denies numbness, Denies weakness - Psychiatric Psychiatric: Reports anxiety, Reports depression - Endocrine Endocrine: Reports fatigue - Hematologic/Lymphatic Hematologic/Lymphatic: Reports as per HPI - Allergic/Immunologic Allergic/Immunologic: Reports as per HPI Past Medical History Past Medical History: Cancer, Eye Disorder, Fibromyalgia, Hyperlipidemia, Neurologic Disorder, Skin Disorder, Thyroid Disorder Additional Past Medical History / Comment(s): Psoriatic Arthritis-ON BACK,ARMS & LEGS, HX VERTIGO OFF & ON, RECENTLY DX CA-SQUAMOUS CELL OF VAGINA. 2016 Thyroid cancer with radioactive tx. History of Any Multi-Drug Resistant Organisms: None Reported Past Surgical History: Section, Orthopedic Surgery, Uterine Ablation Additional Past Surgical History / Comment(s): LT [id number]; LT KNEE SCOPE 2002; LT BREAST BX- STEREOTACTIC CORE BX 2013; RT CTR 2013;; UTERINE ABLATION 2010; 04/25/15 EXCISION OF CALCIFIED LT SUBCUTANEOUS PERINEAL TISSUE; COLONOSCOPY 2011 WITH 2 POLYPS REMOVED; NASAL SURGERY 2012, thyroidectomy. 2020 left elbow surgery Past Anesthesia/Blood Transfusion Reactions: No Reported Reaction Past Psychological History: Anxiety, Depression Additional Psychological History / Comment(s): OCC ANXIETY Smoking Status: Former smoker Past Alcohol Use History: Rare Additional Past Alcohol Use History / Comment(s): SMOKER SINCE AGE 14(1968)- HAS QUIT OFF & ON,SMOKES 1PPD. Quit smoking Past Drug Use History: None Reported - Past Family History Mother Family Medical History: Eye Disorder, Hyperlipidemia, Hypertension Additional Family Medical History / Comment(s): HEART DISEASE AND MACULAR DEGENERATION Sister(s) Family Medical History: Hyperlipidemia Additional Family Medical History / Comment(s): TWO SISTERS HAVE HYPERLIPIDEMIA Brother(s) Family Medical History: Hyperlipidemia, Hypertension Additional Family Medical History / Comment(s): BOTH BROTHERS HAVE HTN, HYPERLIPIDEMIAS, HEART DISEASE Medications and Allergies Home Medications Medication Instructions Recorded Confirmed Type Cyanocobalamin [Vitamin B-12] 1,000 mcg PO DAILY 03/30/14 08/06/23 History Simvastatin [Zocor] 20 mg PO HS 03/30/14 08/06/23 History Loratadine [Claritin] 10 mg PO DAILY 09/08/14 08/06/23 History Magnesium Gluconate [Magonate] 500 mg PO DAILY 05/31/15 08/06/23 History ARIPiprazole [Abilify] 5 mg PO HS 10/27/16 08/06/23 History Calcium Carbonate [Calcium] 600 mg PO HS 10/27/16 08/06/23 History Levothyroxine Sodium [Synthroid] 125 mcg PO DAILY 10/27/16 08/06/23 History Multivitamins, Thera [Multivitamin 1 tab PO DAILY 10/27/16 08/06/23 History (formulary)] Apremilast [Otezla] 30 mg PO BID 08/06/23 08/06/23 History DULoxetine HCL [Cymbalta] 60 mg PO BID 08/06/23 08/06/23 History busPIRone HCL 10 mg PO BID 08/06/23 08/06/23 History Allergies Allergy/AdvReac Type Severity Reaction Status Date / Time oxycodone HCl [From Percodan] Allergy Itching Verified 08/06/23 14:51 oxycodone terephthalate Allergy Itching Verified 08/06/23 14:51 [From Percodan] Objective - Vital Signs Vital signs: Vital Signs Temp 97.4 F L 04/23/24 10:49 Pulse 88 04/23/24 10:49 Resp 17 04/23/24 10:49 BP 125/83 04/23/24 10:49 Pulse Ox 98 04/23/24 10:49 FiO2 Intake & Output 04/22/24 04/23/24 04/23/24 18:59 06:59 18:59 Weight 64.41 kg - Constitutional General appearance: Present: cooperative - EENT Eyes: Present: EOMI ENT: Present: hearing grossly normal - Neck Neck: Present: normal ROM - Respiratory Respiratory: bilateral: CTA - Cardiovascular Rhythm: regular Heart sounds: normal: S1, S2 - Integumentary Integumentary: Present: normal turgor - Musculoskeletal Musculoskeletal: Present: gait normal - Psychiatric Psychiatric: Present: A&O x's 3, appropriate affect, intact judgment & insight - Additional findings Additional findings: Breast Exam: BRA: 34D inspection: Bilateral grade 2 ptosis Palpation: Right breast: Multiple positional exam fibrocystic changes no dominant masses or nodules of concern, biopsy site clean and dry no evidence of infection pj robable seroma right breast at lumpectomy site Right axilla: No adenopathy of concern Left breast: Multiple positional exam fibrocystic changes no dominant masses or nodules of concern Left axilla: No adenopathy of concern Assessment and Plan Assessment: Impression: DCIS right breast Fibrocystic breast changes Prior history of squamous cell carcinoma of the vagina and medullary thyroid cancer no evidence of disease at this time Fibromyalgia Anxiety/depression probalbe seroma of the right breast Plan: Continue exemestane Continue to follow with Dr. Berry regarding vaginal cancer Bilateral mammogram in July with physician exam at that time Attempted aspiration of right breast probable seroma CC: Dr. Nguyen, Dr. Berry Additional CC's: eRji Nguyen Objective - Vital Signs Vital signs: Vital Signs Temp 98.9 F 05/14/24 09:43 Pulse 102 H 05/14/24 09:43 Resp 18 05/14/24 09:43 BP 117/79 05/14/24 09:43 Pulse Ox 97 05/14/24 09:43 FiO2 Intake & Output 05/13/24 05/14/24 05/14/24 18:59 06:59 18:59 Weight 65.771 kg - Constitutional General appearance: Present: cooperative - EENT Eyes: Present: EOMI ENT: Present: hearing grossly normal - Neck Neck: Present: normal ROM - Respiratory Respiratory: bilateral: CTA - Cardiovascular Rhythm: regular Heart sounds: normal: S1, S2 - Integumentary Integumentary: Present: normal turgor - Musculoskeletal Musculoskeletal: Present: gait normal - Psychiatric Psychiatric: Present: A&O x's 3, appropriate affect, intact judgment & insight - Additional findings Additional findings: Breast Exam: BRA: 34D inspection: Bilateral grade 2 ptosis Palpation: Right breast: Multi positional exam fibrocystic changes no dominant masses or nodules of concern, lumpectomy site clean and dry no evidence of infection probable ? small recurrent seroma right breast at lumpectomy site, post radiation changes near aerola no dimpling of concern Right axilla: No adenopathy of concern Left breast: Multiple positional exam fibrocystic changes no dominant masses or nodules of concern Left axilla: No adenopathy of concern Assessment and Plan Assessment: Impression: DCIS right breast Fibrocystic breast changes Prior history of squamous cell carcinoma of the vagina and medullary thyroid cancer no evidence of disease at this time Fibromyalgia Anxiety/depression probable small recurrent seroma of the right breast, post radiation changes no dimpling of concern Plan: Continue exemestane Continue to follow with Dr. Berry regarding vaginal cancer Bilateral mammogram in July with physician exam at that time discussed attempted aspiration of possible small seroma of the right breast, or ultrasound, at this time we will follow conservatively CC: Dr. Nguyen, Dr. Berry
== END ==
LOC: WWCWWP 09:30
PROVIDERS: ATTEND Surgery

== ENCOUNTER → 2024-08-02 | Outpatient (CLI) | payer MEDICARE ==
--- NOTE | 2024-08-02 08:06 | MM ---
Reason for Exam: Follow-up at short interval from prior study. Last screening mammogram was performed 12 month(s) ago. Patient History: Menarche at age 12. First Full-Term at age 29. Late child-bearing (after 29). Postmenopausal. Patient has history of breast feeding. Other cancer, age 50. Breast cancer, right, age 58. Breast cancer, right, age 58. Previous chest radiation therapy at age 58. Patient used Hormonal Contraceptives for 20 years. 10/21/2023, Lumpectomy on the Right side. 10/21/2023, Malignant MG pre op needle loc RT on the right side. 08/14/2023, Malignant MG stereo VAD BX RT on the right side. 11/11/2013, High risk Core Biopsy on the left side. Paternal aunt had breast cancer. Maternal aunt had breast cancer. Maternal aunt had breast cancer, age 68. Prior Study Comparison: 07/03/2020 Bilateral Screening Mammogram, [facility]. 07/10/2022 Bilateral MG 3D screening mammo w/cad, [facility]. 07/30/2023 Bilateral MG 3D screening mammo w/cad, [facility]. 08/05/2023 Right MG 3D work up w/cad RT, [facility]. Tissue Density: The breasts are heterogeneously dense, which may obscure small masses. Findings: Analyzed By CAD. Well-circumscribed lesion in the area of prior surgical intervention measuring up to 32 x 41 mm. Surgical clips present. No new suspicious masses, calcifications or distortions. Overall Assessment: Benign, BI-RAD 2 Management: Diagnostic Mammogram of both breasts in 1 year. Results were given to the patient verbally at the time of exam. Patient should continue monthly self-breast exams. A clinical breast exam by your physician is recommended on an annual basis. This exam should not preclude additional follow-up of suspicious palpable abnormalities. Note on Muna scores and lifetime risk: 1. A Muna score greater than 3% is considered moderate risk. If this is the case, consider specialist referral to assess eligibility for a risk reducing agent. 2. If overall lifetime risk for the development of breast cancer is 20% or higher, the patient may qualify for future screening with alternating mammogram and breast MRI. [facility], , 08/02/2024 8:03 AM. Electronically signed and approved by: Chris Stoner DO
== END | disposition home or self-care (01) ==
LOC: RADMAMWWP 07:40
PROVIDERS: ATTEND Surgery
DX: Z85.3 Personal history of malignant neoplasm of breast (principal); Z78.0 Asymptomatic menopausal state; Z80.3 Family history of malignant neoplasm of breast; R92.333 Mammographic heterogeneous density, bilateral breasts; Z98.82 Breast implant status
CPT/HCPCS: 77066; G0279; 77062

== ENCOUNTER → 2024-08-05 | Outpatient (CLI) | payer MEDICARE ==
[2024-08-05 12:30] VITALS: BP 122/83; PULSE 99; RESP 17; TEMP 98.6
--- NOTE | 2024-08-05 12:42 | P.PN ---
Subjective Progress Note Date: 08/05/24 08-05-24 right breast high grade DCIS July 2023 Marnie is a 59-year-old white female seen in consultation for Dr. Nguyen regarding an abnormal right breast mammogram. She underwent a bilateral mammogram on 1323. Additional views of the right breast were recommended. Th jarocho were performed on 1923. This revealed multiple grouped calcifications in the upper outer mid right breast. Stereotactic core biopsy was recommended. This was found on a routine mammogram. The patient did not feel anything of concern in her breast. She underwent a left breast core biopsy approximately 10 years ago which was benign. She was not complaining of any nipple discharge or skin changes. She had not had any recent trauma or infection in the breast. 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 Presentation of case at tumor board on 09-02-23 Lesion 2.3 cm on CC view, and 1.8 CC lateral view, clip is in the area of the lesion. Plan on bracketing lesion from CC above aproach, the clip is in the location and their are some residual calcificaitons also. This was reviewed with Dr. Lee. lumpectomy on 10-21-23; 1 margin < 1mm all margins (-); 11 nodes all (-) patient given option of re-excision and declined recommended radiation and hormone therapy note medical oncology 01-01-24 reviewed recommend exmestane, she is having hot flashes note radiation oncology reviewed 12-04-23; completed in mid January On her last visit of 04-23-24 it was firm firm at the lumpectomy site in the right breast which started about three weeks after radiation started She is following with DR. Berry regarding the SCC fo the vagina After consent on 04-23-24 the area of concern in the right breast was prepped using alcohol. An 18-gauge needle and a 20 cc syringe was used to aspirate 115 cc of straw-colored fluid. There was complete resolution of the seroma. The patient tolerated this without difficulty. On last visit concerned about some dimpling in the periareolar region of the right breast. She noted yesterday, she is not complaining of any lumps masses or nodules of concern. Did have aspiration of the right breast on her last visit which was on 04-23-2024. Bilateral mammogram 08-02-24 BIRAD 2, personally intrepreted Caffiene: 2 cups/day nicotine: none chocolate: occasional BCP: used for ab out 25 years, stopped about 15 years ago hormones: none Family history: brother: tongue cancer smoker and drinker paternal aunt: breast cancer maternal aunt (2) : breast cancer patient: SCC of vagina had chemotherapy and radiation; no surgery; diagnosed as stage 4; 8 years ago a follow up PET scan meduallary cancer Stage 4 no recurrence (follows with Dr. Berry and Dr. Nguyen) Hormonal HIstory: menarche: 11 breast fed: yes, age at : 30 menopause: ablation at 41 so ? age at menopause hormones: none Surgical History: right knee arthroscopy left thumb exploratory surgery in abdomen related to SCC thyroid resection elbow left bilateral catarat surgery Medical History: Psoriatic arthritis/psoriasis fibromyalgia fatigue Social history: Nicotine: Negative Alcohol: Occasional Drugs: Negative - Constitutional Constitutional: Denies chills, Denies fever - EENT Eyes: denies blurred vision, denies pain Ears: deny: decreased hearing, tinnitus Ears, nose, mouth and throat: Denies headache, Denies sore throat - Breasts Breasts: bilateral: as per HPI - Cardiovascular Cardiovascular: Denies chest pain, Denies shortness of breath - Respiratory Respiratory: Denies cough - Gastrointestinal Gastrointestinal: Reports diarrhea - Genitourinary (Female) Genitourinary: Denies dysuria, Denies hematuria - Menstruation Menstruation: Reports as per HPI - Musculoskeletal Musculoskeletal: Reports myalgias - Integumentary Integumentary: Reports as per HPI - Neurological Neurological: Denies numbness, Denies weakness - Psychiatric Psychiatric: Reports anxiety, Reports depression - Endocrine Endocrine: Reports fatigue - Hematologic/Lymphatic Hematologic/Lymphatic: Reports as per HPI - Allergic/Immunologic Allergic/Immunologic: Reports as per HPI Past Medical History Past Medical History: Cancer, Eye Disorder, Fibromyalgia, Hyperlipidemia, Neurologic Disorder, Skin Disorder, Thyroid Disorder Additional Past Medical History / Comment(s): Psoriatic Arthritis-ON BACK,ARMS & LEGS, HX VERTIGO OFF & ON, RECENTLY DX CA-SQUAMOUS CELL OF VAGINA. 2016 Thyroid cancer with radioactive tx. History of Any Multi-Drug Resistant Organisms: None Reported Past Surgical History: Section, Orthopedic Surgery, Uterine Ablation Additional Past Surgical History / Comment(s): LT [id number]; LT KNEE SCOPE 2002; LT BREAST BX- STEREOTACTIC CORE BX 2013; RT CTR 2013;; UTERINE ABLATION 2010; 04/25/15 EXCISION OF CALCIFIED LT SUBCUTANEOUS PERINEAL TISSUE; COLONOSCOPY 2011 WITH 2 POLYPS REMOVED; NASAL SURGERY 2012, thyroidectomy. 2019 left elbow surgery Past Anesthesia/Blood Transfusion Reactions: No Reported Reaction Past Psychological History: Anxiety, Depression Additional Psychological History / Comment(s): OCC ANXIETY Smoking Status: Former smoker Past Alcohol Use History: Rare Additional Past Alcohol Use History / Comment(s): SMOKER SINCE AGE 14(1968)- HAS QUIT OFF & ON,SMOKES 1PPD. Quit smoking Past Drug Use History: None Reported - Past Family History Mother Family Medical History: Eye Disorder, Hyperlipidemia, Hypertension Additional Family Medical History / Comment(s): HEART DISEASE AND MACULAR DEGENERATION Sister(s) Family Medical History: Hyperlipidemia Additional Family Medical History / Comment(s): TWO SISTERS HAVE HYPERLIPIDEMIA Brother(s) Family Medical History: Hyperlipidemia, Hypertension Additional Family Medical History / Comment(s): BOTH BROTHERS HAVE HTN, HYPERLIPIDEMIAS, HEART DISEASE Medications and Allergies Home Medications Medication Instructions Recorded Confirmed Type Cyanocobalamin [Vitamin B-12] 1,000 mcg PO DAILY 03/30/14 08/06/23 History Simvastatin [Zocor] 20 mg PO HS 03/30/14 08/06/23 History Loratadine [Claritin] 10 mg PO DAILY 09/08/14 08/06/23 History Magnesium Gluconate [Magonate] 500 mg PO DAILY 05/31/15 08/06/23 History ARIPiprazole [Abilify] 5 mg PO HS 10/27/16 08/06/23 History Calcium Carbonate [Calcium] 600 mg PO HS 10/27/16 08/06/23 History Levothyroxine Sodium [Synthroid] 125 mcg PO DAILY 10/27/16 08/06/23 History Multivitamins, Thera [Multivitamin 1 tab PO DAILY 10/27/16 08/06/23 History (formulary)] Apremilast [Otezla] 30 mg PO BID 08/06/23 08/06/23 History DULoxetine HCL [Cymbalta] 60 mg PO BID 08/06/23 08/06/23 History busPIRone HCL 10 mg PO BID 08/06/23 08/06/23 History Allergies Allergy/AdvReac Type Severity Reaction Status Date / Time oxycodone HCl [From Percodan] Allergy Itching Verified 08/06/23 14:51 oxycodone terephthalate Allergy Itching Verified 08/06/23 14:51 [From Percodan] Objective - Vital Signs Vital signs: Vital Signs Temp 98.6 F 08/05/24 12:28 Pulse 99 08/05/24 12:28 Resp 17 08/05/24 12:28 BP 122/83 08/05/24 12:28 Pulse Ox 97 08/05/24 12:28 FiO2 Intake & Output 08/04/24 08/05/24 08/05/24 18:59 06:59 18:59 Weight 68.039 kg - Constitutional General appearance: Present: cooperative - EENT Eyes: Present: EOMI ENT: Present: hearing grossly normal - Neck Neck: Present: normal ROM - Respiratory Respiratory: bilateral: CTA - Cardiovascular Rhythm: regular Heart sounds: normal: S1, S2 - Integumentary Integumentary: Present: normal turgor - Musculoskeletal Musculoskeletal: Present: gait normal - Psychiatric Psychiatric: Present: A&O x's 3, appropriate affect, intact judgment & insight - Additional findings Additional findings: Breast Exam: BRA: 34D inspection: Bilateral grade 2 ptosis Palpation: Right breast: Multi positional exam fibrocystic changes no dominant masses or nodules of concern, lumpectomy site clean and dry no evidence of infection probable ? recurrent seroma right breast at lumpectomy site, post radiation changes near aerola no dimpling of concern Right axilla: No adenopathy of concern Left breast: Multiple positional exam fibrocystic changes no dominant masses or nodules of concern Left axilla: No adenopathy of concern Assessment and Plan Assessment: Impression: DCIS right breast Fibrocystic breast changes Prior history of squamous cell carcinoma of the vagina and medullary thyroid cancer no evidence of disease at this time Fibromyalgia Anxiety/depression probable small recurrent seroma of the right breast, post radiation changes no dimpling of concern bilateral mammogram 08-02-24 BIRAD 2 Plan: Continue exemestane Continue to follow with Dr. Berry regarding vaginal cancer Bilateral mammogram in July with physician exam at that time atempt to aspirated seroma right breast CC: Dr. Nguyen, Dr. Berry
== END ==
LOC: WWCWWP 11:50
PROVIDERS: ATTEND Surgery
DX: D05.11 Intraductal carcinoma in situ of right breast (principal); N60.11 Diffuse cystic mastopathy of right breast; F32.A Depression, unspecified; F41.9 Anxiety disorder, unspecified; R92.8 Other abnormal and inconclusive findings on diagnostic imaging of breast; M79.7 Fibromyalgia; F17.210 Nicotine dependence, cigarettes, uncomplicated; Z85.828 Personal history of other malignant neoplasm of skin; Z85.850 Personal history of malignant neoplasm of thyroid; Z85.44 Personal history of malignant neoplasm of other female genital organs; Z80.3 Family history of malignant neoplasm of breast; Z88.5 Allergy status to narcotic agent

== ENCOUNTER → 2024-10-20 | Outpatient (CLI) | payer MEDICARE ==
--- NOTE | 2024-10-20 12:18 | XR ---
EXAMINATION TYPE: XR ribs bilat w pa chest xray DATE OF EXAM: 10/20/2024 12:06 PM COMPARISON: Chest x-ray February 07, 2020 CLINICAL INDICATION: Female, 59 years old with history of R07.9 CHEST PAIN, UNSPECIFIED; PHH, pain TECHNIQUE: XR ribs bilat w pa chest xray; Frontal and oblique views of the ribs with frontal chest ra diograph. FINDINGS: The ribs have a normal appearance. No evidence of fracture. Surgical clips and overlying r ight breast are present Overall, the lungs are clear. The cardiac silhouette is normal in size. The remaining osseous structures are intact. IMPRESSION: No acute displaced rib fracture bilaterally. No acute cardiopulmonary process. [facility], , 10/20/2024 12:15 PM
== END | disposition home or self-care (01) ==
LOC: RADXRMAIN 11:42
PROVIDERS: ATTEND Physician Assistant
DX: R07.9 Chest pain, unspecified (principal)
CPT/HCPCS: 71111

== ENCOUNTER → 2025-02-11 | Outpatient (CLI) | payer MEDICARE ==
[2025-02-11 13:06] VITALS: BP 121/79; PULSE 95; RESP 16; TEMP 98.1
--- NOTE | 2025-02-11 13:34 | P.PN ---
Subjective Progress Note Date: 02/11/25 Subjective Progress Note Date: 02-11-25 right breast high grade DCIS July 2023 Marnie is a 59-year-old white female seen in consultation for Dr. Nguyen regarding an abnormal right breast mammogram. She underwent a bilateral mammogram on 1323. Additional views of the right breast were recommended. These were performed on 1923. This revealed multiple grouped calcifications in the upper outer mid right breast. Stereotactic core biopsy was recommended. This was found on a routine mammogram. The patient did not feel anything of concern in her breast. She underwent a left breast core biopsy approximately 10 years ago which was benign. She was not complaining of any nipple discharge or skin changes. She had not had any recent trauma or infection in the breast. 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 Presentation of case at tumor board on 09-02-23 Lesion 2.3 cm on CC view, and 1.8 CC lateral view, clip is in the area of the lesion. Plan on bracketing lesion from CC above aproach, the clip is in the location and their are some residual calcificaitons also. This was reviewed with Dr. Lee. lumpectomy on 10-21-23; 1 margin < 1mm all margins (-); 11 nodes all (-) patient given option of re-excision and declined recommended radiation and hormone therapy note medical oncology 12-28-24 reviewed recommend aromosin, she is having hot flashes note radiation oncology reviewed 08-12-24; completed 01-14-24; 5256 cGy She is following with DR. Berry regarding the SCC fo the vagina; she is now fo llowing with DR. Collazo, seen in Jul. Bilateral mammogram 08-02-24 BIRAD 2 diagnosed with lymphedema of the breast and treated with PT, it is softer now After consent on 04-23-24 the area of concern in the right breast was prepped using alcohol. An 18-gauge needle and a 20 cc syringe was used to aspirate 115 cc of straw-colored fluid. There was complete resolution of the seroma. The patient tolerated this without difficulty. seroma aspiration on 08-05-24 35 cc straw colored fluid with complete resolution of a seroma right breast Caffiene: 2 cups/day nicotine: none chocolate: occasional BCP: used for ab out 25 years, stopped about 15 years ago hormones: none Family history: brother: tongue cancer smoker and drinker paternal aunt: breast cancer maternal aunt (2) : breast cancer patient: SCC of vagina had chemotherapy and radiation; no surgery; diagnosed as stage 4; 8 years ago a follow up PET scan meduallary cancer Stage 4 no recurrence (follows with Dr. Berry and Dr. Nguyen) Hormonal HIstory: menarche: 11 breast fed: yes, age at : 30 menopause: ablation at 41 so ? age at menopause hormones: none Surgical History: right knee arthroscopy left thumb exploratory surgery in abdomen related to SCC thyroid resection elbow left bilateral catarat surgery Medical History: Psoriatic arthritis/psoriasis fibromyalgia fatigue Social history: Nicotine: Negative Alcohol: Occasional Drugs: Negative - Constitutional Constitutional: Denies chills, Denies fever - EENT Eyes: denies blurred vision, denies pain Ears: deny: decreased hearing, tinnitus Ears, nose, mouth and throat: Denies headache, Denies sore throat - Breasts Breasts: bilateral: as per HPI - Cardiovascular Cardiovascular: Denies chest pain, Denies shortness of breath - Respiratory Respiratory: Denies cough - Gastrointestinal Gastrointestinal: Reports diarrhea - Genitourinary (Female) Genitourinary: Denies dysuria, Denies hematuria - Menstruation Menstruation: Reports as per HPI - Musculoskeletal Musculoskeletal: Reports myalgias - Integumentary Integumentary: Reports as per HPI - Neurological Neurological: Denies numbness, Denies weakness - Psychiatric Psychiatric: Reports anxiety, Reports depression - Endocrine Endocrine: Reports fatigue - Hematologic/Lymphatic Hematologic/Lymphatic: Reports as per HPI - Allergic/Immunologic Allergic/Immunologic: Reports as per HPI Past Medical History Past Medical History: Cancer, Eye Disorder, Fibromyalgia, Hyperlipidemia, Neurologic Disorder, Skin Disorder, Thyroid Disorder Additional Past Medical History / Comment(s): Psoriatic Arthritis-ON BACK,ARMS & LEGS, HX VERTIGO OFF & ON, RECENTLY DX CA-SQUAMOUS CELL OF VAGINA. 2016 Thyroid cancer with radioactive tx. History of Any Multi-Drug Resistant Organisms: None Reported Past Surgical History: Section, Orthopedic Surgery, Uterine Ablation Additional Past Surgical History / Comment(s): LT [id number]; LT KNEE SCOPE 2002; LT BREAST BX- STEREOTACTIC CORE BX 2013; RT CTR 2013;; UTERINE ABLATION 2010; 04/25/15 EXCISION OF CALCIFIED LT SUBCUTANEOUS PERINEAL TISSUE; COLONOSCOPY 2011 WITH 2 POLYPS REMOVED; NASAL SURGERY 2012, thyroidectomy. 2020 left elbow surgery Past Anesthesia/Blood Transfusion Reactions: No Reported Reaction Past Psychological History: Anxiety, Depression Additional Psychological History / Comment(s): OCC ANXIETY Smoking Status: Former smoker Past Alcohol Use History: Rare Additional Past Alcohol Use History / Comment(s): SMOKER SINCE AGE 14(1968)- HAS QUIT OFF & ON,SMOKES 1PPD. Quit smoking Past Drug Use History: None Reported - Past Family History Mother Family Medical History: Eye Disorder, Hyperlipidemia, Hypertension Additional Family Medical History / Comment(s): HEART DISEASE AND MACULAR DEGENERATION Sister(s) Family Medical History: Hyperlipidemia Additional Family Medical History / Comment(s): TWO SISTERS HAVE HYPERLIPIDEMIA Brother(s) Family Medical History: Hyperlipidemia, Hypertension Additional Family Medical History / Comment(s): BOTH BROTHERS HAVE HTN, HYPERLIPIDEMIAS, HEART DISEASE Medications and Allergies Home Medications Medication Instructions Recorded Confirmed Type Cyanocobalamin [Vitamin B-12] 1,000 mcg PO DAILY 03/30/14 08/06/23 History Simvastatin [Zocor] 20 mg PO HS 03/30/14 08/06/23 History Loratadine [Claritin] 10 mg PO DAILY 09/08/14 08/06/23 History Magnesium Gluconate [Magonate] 500 mg PO DAILY 05/31/15 08/06/23 History ARIPiprazole [Abilify] 5 mg PO HS 10/27/16 08/06/23 History Calcium Carbonate [Calcium] 600 mg PO HS 10/27/16 08/06/23 History Levothyroxine Sodium [Synthroid] 125 mcg PO DAILY 10/27/16 08/06/23 History Multivitamins, Thera [Multivitamin 1 tab PO DAILY 10/27/16 08/06/23 History (formulary)] Apremilast [Otezla] 30 mg PO BID 08/06/23 08/06/23 History DULoxetine HCL [Cymbalta] 60 mg PO BID 08/06/23 08/06/23 History busPIRone HCL 10 mg PO BID 08/06/23 08/06/23 History Allergies Allergy/AdvReac Type Severity Reaction Status Date / Time oxycodone HCl [From Percodan] Allergy Itching Verified 08/06/23 14:51 oxycodone terephthalate Allergy Itching Verified 08/06/23 14:51 [From Percodan] Objective - Vital Signs Vital signs: Vital Signs Temp 98.1 F 02/11/25 13:03 Pulse 95 02/11/25 13:03 Resp 16 02/11/25 13:03 BP 121/79 02/11/25 13:03 Pulse Ox 97 02/11/25 13:03 FiO2 Intake & Output 02/10/25 02/11/25 02/11/25 18:59 06:59 18:59 Weight 70.76 kg - Constitutional General appearance: Present: cooperative - EENT Eyes: Present: EOMI ENT: Present: hearing grossly normal - Neck Neck: Present: normal ROM - Respiratory Respiratory: bilateral: CTA - Cardiovascular Rhythm: regular Heart sounds: normal: S1, S2 - Integumentary Integumentary: Present: normal turgor - Musculoskeletal Musculoskeletal: Present: gait normal - Psychiatric Psychiatric: Present: A&O x's 3, appropriate affect, intact judgment & insight - Additional findings Additional findings: Breast Exam: BRA: 34D inspection: Bilateral grade 2 ptosis Palpation: Right breast: Multi positional exam fibrocystic changes no dominant masses or nodules of concern, lumpectomy site clean and dry no evidence of infection probable post radiation changes near aerola no dimpling of concern Right axilla: No adenopathy of concern Left breast: Multiple positional exam fibrocystic changes no dominant masses or nodules of concern Left axilla: No adenopathy of concern Assessment and Plan Assessment: Impression: DCIS right breast Fibrocystic breast changes Prior history of squamous cell carcinoma of the vagina and medullary thyroid cancer no evidence of disease at this time Fibromyalgia Anxiety/depression bilateral mammogram 08-02-24 KIRK 2 Plan: Continue exemestane Continue to follow with Dr. Collazo/fuel storage technician regarding vaginal cancer Bilateral mammogram in July 2025 with physician exam at that time follow with medical oncology CC: Dr. Nguyen, Dr. Berry
== END ==
LOC: WWCWWP 12:30
PROVIDERS: ATTEND Surgery
DX: D05.11 Intraductal carcinoma in situ of right breast (principal); N60.11 Diffuse cystic mastopathy of right breast; M79.7 Fibromyalgia; F32.A Depression, unspecified; F41.9 Anxiety disorder, unspecified; Z85.850 Personal history of malignant neoplasm of thyroid; Z85.828 Personal history of other malignant neoplasm of skin